=== PATIENT | female | born 1995 | race Caucasian/White ===

== ENCOUNTER → 2017-02-28 | Outpatient (CLI) | payer BC ==
--- NOTE | 2017-02-28 11:01 | Diagnostic Imaging Report ---
PROCEDURE: US OB SINGLE FETUS <14 WKS. TECHNIQUE: Multiple Real-time grayscale images were obtained over the gravid uterus in various projections. INDICATION: Threatened . FINDINGS: There is a twin intrauterine . Baby A has a heart rate of 160 BPM which is regular. Baby B has a heart rate of 179 BPM which is regular. There is a single gestational sac. Neither ovary was visualized. There are no adnexal masses. There is no free pelvic fluid. IMPRESSION: Viable twin intrauterine with cardiac activity as described. Dictated by: Dictated on workstation # [id number]
== END ==
LOC: RAD 09:58
PROVIDERS: ATTEND Obstetrics & Gynecology
DX: O20.0 Threatened abortion (principal); O30.001 Twin pregnancy, unspecified number of placenta and unspecified number of amniotic sacs, first trimester; Z3A.01 Less than 8 weeks gestation of pregnancy
CPT/HCPCS: 76801

== ENCOUNTER 2017-07-01 23:42 | Outpatient (CLI) | payer BC, MEDICAID ==
[~2017-07-01] VITALS: Ht 162.6 cm; Wt 128.8 kg
[2017-07-02 00:05] VITALS: BP 128/79
[2017-07-02] MEDS ORDERED: PREN-142 PO (00:18)
[2017-07-02 00:19] LABS: BILIRUBIN,URINE NEGATIVE (NEGATIVE); CLARITY,URINE CLEAR; COLOR,URINE YELLOW; GLUCOSE, URINE (UA) NEGATIVE (NEGATIVE); KETONES,URINE 1+ (NEGATIVE); LEUKOCYTE ESTERASE ,URINE NEGATIVE (NEGATIVE); NITRITE,URINE NEGATIVE (NEGATIVE); PH,URINE 6.5 (5-9); PROTEIN,URINE NEGATIVE (NEGATIVE); UROBILINOGEN,URINE NORMAL (NORMAL)
[2017-07-02 00:25] LABS: BACTERIA,URINE TRACE /HPF
--- NOTE | 2017-07-04 11:14 | Physician Query-Final Dx ---
QUIRINO MURDOCK 07/04/17 1114: Clinic Account Progress/Dx Physician Query: Please give diagnosis Date of Service Jul 01, 2017 at 23:42 CHARISSA GOULD DO 07/04/17 1916: Clinic Account Progress/Dx DIAGNOSIS: Diagnosis twin , decreased movement QUIRION MURDOCK Jul 04, 2017 11:14 CHARISSA GOULD DO Jul 04, 2017 19:16
== END 2017-07-02 01:03 ==
LOC: WSo 23:42 → LDRP 23:43 → WSo 07-02 01:03
PROVIDERS: ATTEND Obstetrics & Gynecology
DX: O36.8120 Decreased fetal movements, second trimester, not applicable or unspecified (principal); O30.009 Twin pregnancy, unspecified number of placenta and unspecified number of amniotic sacs, unspecified trimester; Z3A.27 27 weeks gestation of pregnancy
CPT/HCPCS: 81000; 99212

== ENCOUNTER 2017-09-06 20:43 | Outpatient (CLI) | payer BC, MEDICAID ==
[2017-09-06] VITALS (7 sets, daily range): BP systolic 102–133; BP diastolic 58–93
[~2017-09-06] VITALS: Ht 162.6 cm; Wt 118.0 kg
[~2017-09-06 20:43] MED LIST: PREN-142 PO
[2017-09-06] MEDS ORDERED: FERR-84 PO (21:21)
[2017-09-06 21:38] LABS: BACTERIA,URINE FEW /HPF; BILIRUBIN,URINE NEGATIVE (NEGATIVE); CLARITY,URINE SLIGHTLY CLOUDY; COLOR,URINE YELLOW; GLUCOSE, URINE (UA) NEGATIVE (NEGATIVE); KETONES,URINE NEGATIVE (NEGATIVE); LEUKOCYTE ESTERASE ,URINE NEGATIVE (NEGATIVE); NITRITE,URINE NEGATIVE (NEGATIVE); PH,URINE 6.5 (5-9); PROTEIN,URINE 1+ (NEGATIVE); UROBILINOGEN,URINE NORMAL (NORMAL)
[2017-09-06 22:09] LABS: BASOPHILS % (AUTO) 0 % (0-10); EOSINOPHILS # (AUTO) 0.1 10^3/uL (0.0-0.3); EOSINOPHILS % (AUTO) 1 % (0-10); HEMATOCRIT 31 % (35-52); HEMOGLOBIN 9.9 G/DL (11.5-16.0); LYMPHOCYTES % (AUTO) 20 % (12-44); MEAN CORPUSCULAR HEMOGLOBIN 28 PG (25-34); MEAN CORPUSCULAR HGB CONC 32 G/DL (32-36); MEAN CORPUSCULAR VOLUME 85 FL (80-99); MEAN PLATELET VOLUME 11.3 FL (7.4-10.4); MONOCYTES # (AUTO) 0.9 X 10^3 (0.0-1.0); MONOCYTES % (AUTO) 9 % (0-12); NEUTROPHILS # (AUTO) 7.2 X 10^3 (1.8-7.8); NEUTROPHILS % (AUTO) 71 % (42-75); PLATELET COUNT 128 10^3/uL (130-400); RED CELL DISTRIBUTION WIDTH 15.5 % (10.0-14.5); WHITE BLOOD COUNT 10.1 10^3/uL (4.3-11.0)
[2017-09-06 22:27] LABS: ALANINE AMINOTRANSFERASE 10 U/L (0-55); ALBUMIN 3.1 GM/DL (3.2-4.5); ALKALINE PHOSPHATASE 126 U/L (40-136); BILIRUBIN,TOTAL 0.2 MG/DL (0.1-1.0); BUN/CREATININE RATIO 12; CALCIUM 9.1 MG/DL (8.5-10.1); CARBON DIOXIDE 21 MMOL/L (21-32); CHLORIDE 108 MMOL/L (98-107); CREATININE SERUM 0.52 MG/DL (0.60-1.30); GFR ESTIMATED > 60; GLUCOSE 90 MG/DL (70-105); POTASSIUM 3.7 MMOL/L (3.6-5.0); SODIUM 138 MMOL/L (135-145); TOTAL PROTEIN 5.8 GM/DL (6.4-8.2)
--- NOTE | 2017-09-08 08:13 | Physician Query-Final Dx ---
QUIRINO MURDOCK 09/08/17 0813: Clinic Account Progress/Dx Physician Query: Please give diagnosis Date of Service Sep 06, 2017 at 20:43 JOSE MANUEL HARVEY DO 09/08/17 0921: Clinic Account Progress/Dx DIAGNOSIS: Diagnosis 36 week twin gestation Elevated BP at home Headache QUIRINO MURDOCK Sep 08, 2017 08:13 JOSE MANUEL HARVEY DO Sep 08, 2017 09:21
== END 2017-09-06 22:45 | disposition home or self-care (01) ==
LOC: WSo 20:43 → LDRP 20:45 → WSo 22:45
PROVIDERS: ATTEND Obstetrics & Gynecology
DX: O99.89 Other specified diseases and conditions complicating pregnancy, childbirth and the puerperium (principal); R51 Headache; R03.0 Elevated blood-pressure reading, without diagnosis of hypertension; O30.003 Twin pregnancy, unspecified number of placenta and unspecified number of amniotic sacs, third trimester; Z3A.36 36 weeks gestation of pregnancy
CPT/HCPCS: 36415; 80053; 81000; 82570; 84156; 84550; 85025; 99213

== ENCOUNTER 2017-09-09 10:47 | Inpatient (IN) | payer BC, MEDICAID ==
[~2017-09-09] VITALS: Ht 162.6 cm; Wt 136.5 kg
[~2017-09-09 10:47] MED LIST changes: +FERR-84 PO
--- OUTSIDE RECORDS SUMMARY | 2017-09-09 10:52 | XMS REPORT ---
Author Gio Mcadams [facility] Address [address] [place], [place] [id number] Care Team Providers Care Circulation Director Name Role Phone Gio Dacosta PCP Unavailable Allergies and Adverse Reactions Name Reaction Notes NO KNOWN DRUG ALLERGIES Plan of Treatment Planned Activity Comments Planned Date Planned Time Plan/Goal HPV VACCINE 4 VALENT IM 06/08/2015 12:00 AM CHYLMD TRACH DNA AMP PROBE 09/01/2015 12:00 AM SYPHILIS TEST NON-TREP QUAL 09/01/2015 12:00 AM HIV-1ANTIBODY 09/01/2015 12:00 AM HEPATITIS C AB TEST 09/01/2015 12:00 AM IMMUNOASSAY QUANT NOS NONAB 09/01/2015 12:00 AM Medications Active Name Start Date Estimated Completion Date SIG Comments Brintellix 10 mg oral tablet 09/18/2013 take 1 tablet (10 mg) by oral route once daily at the same time each day Brintellix 10 mg oral tablet 03/18/2014 TAKE ONE TABLET BY MOUTH ONCE DAILY AT THE SAME TIME EACH DAY Brintellix 10 mg oral tablet 05/13/2014 TAKE ONE TABLET BY MOUTH ONCE DAILY AT THE SAME TIME EACH DAY Name Start Date Expiration Date SIG Comments quetiapine 25 mg oral tablet 04/25/2013 take 1 tablet by oral route once a day for 4 days then alternate with 50 mg for 1 week15 ciprofloxacin HCl 500 mg oral tablet 07/22/2015 07/29/2015 take 1 tablet (500 mg ) by oral route 2 times per day for 7 days Discontinued Name Start Date Discontinued Date SIG Comments venlafaxine 50 mg oral tablet 04/25/2013 take 1 tablet (50 mg) by oral route Dr. Jones venlafaxine 50 mg oral tablet 04/25/2013 take 1 tablet (50 mg) by oral route changed by Dr. Reagan Christian 50 mg oral capsule 04/25/2013 take 1 capsule (50 mg) by oral route once daily in the morning Dr. Donald Vyvanse 50 mg oral capsule 04/25/2013 take 1 capsule (50 mg) by oral route once daily in the morning stopped by Dr. Reagan Frazier 1 % topical gel 04/06/2013 07/27/2013 apply to the affected area(s) by topical route once daily ; rub in gently and completely clindamycin HCl 300 mg oral capsule 03/16/2013 04/25/2013 take 1 capsule ( 300 mg) by oral route 2 times per day venlafaxine 75 mg oral tablet 06/15/2013 07/27/2013 take 1 tablet (75 mg) by oral route 2 times per for 30 days Tri-Sprintec (28) 0.18/0.215/0.25 mg-35 mcg (28) oral tablet 08/01/20132014 take 1 tablet by oral route once daily for 28 days "I stopped taking" quetiapine 100 mg oral tablet 09/18/2013 06/14/2014 take 1 tablet (50 mg) by oral route once daily at bedtime Dr Pulido stopped this Latuda 20 mg oral tablet 10/04/2014 take 1 tablet (20 mg) by oral route once daily with food (at least 350 calories) "I just stopped taking it" prednisone 20 mg oral tablet 06/14/2014 08/02/2014 take 1 tablet (20 mg) by oral route once daily Augmentin 500-125 mg oral tablet 06/14/2014 08/02/2014 take 1 tablet by oral route every 12 hours Brintellix 10 mg oral tablet 06/22/2014 10/04/2014 TAKE ONE TABLET BY MOUTH ONCE DAILY AT THE SAME TIME EACH DAY Brintellix 10 mg oral tablet 06/22/2014 10/04/2014 TAKE ONE TABLET BY MOUTH ONCE DAILY AT THE SAME TIME EACH DAY "I just stopped taking it" Augmentin 500-125 mg oral tablet 10/04/2014 06/04/2015 take 1 tablet by oral route every 12 hours benzonatate 200 mg oral capsule 10/04/2014 06/04/2015 take 1 capsule (200 mg) by oral route 3 times per day as needed Claritin-D 24 Hour 10-240 mg oral tablet extended release 24 hr 10/04/2014 take 1 tablet by oral route once daily as needed. Monitor Blood Pressure Vyvanse 20 mg oral capsule 06/04/2015 08/22/2015 take 1 capsule by oral route daily Nasonex 50 mcg/actuation nasal spray,non-aerosol 08/22/2015 09/01/2015 spray 2 sprays in each nostril by intranasal route once daily for 30 days Problem List Description Status Onset ADHD Active Depression Active Vital Signs Date Time BP-Sys(mm[Hg] BP-Perla(mm[Hg]) HR(bpm) RR(rpm) Temp WT HT HC BMI BSA BMI Percentile O2 Sat(%) 09/01/2015 1:51:00 PM 135 mmHg 63 mmHg 75 bpm 99.2 F 274 lbs 65.5 in 44.90 kg/m2 2.40 m2 99.2 % 08/22/2015 3:59:00 PM 130 mmHg 84 mmHg 91 bpm 18 rpm 97.4 F 273 lbs 64 in 46.8599 kg/m 2.3647 m 99.3 % 100 % 07/22/2015 10:43:00 AM 120 mmHg 72 mmHg 80 bpm 18 rpm 97.8 F 268 lbs 68 in 40.75 kg/m2 2.42 m2 98.8 % 100 % 07/02/2015 10:07:00 AM 70 bpm 20 rpm 96.8 F 265 lbs 100 % 06/04/2015 10:24:00 AM 130 mmHg 72 mmHg 69 bpm 16 rpm 97.4 F 274 lbs 68 in 41.6611 kg/m 2.4419 m 99 % 100 % 10/04/2014 3:51:00 PM 126 mmHg 66 mmHg 90 bpm 18 rpm 98.2 F 256 lbs 68 in 38.92 kg/m2 2.36 m2 98.8 % 99 % 08/02/2014 3:27:00 PM 124 mmHg 70 mmHg 80 bpm 18 rpm 98.4 F 252 lbs 68 in 38.3161 kg/m 2.3418 m 98.7 % 99 % 07/19/2014 4:20:00 PM 110 mmHg 68 mmHg 60 bpm 18 rpm 97 F 254 lbs 64 in 43.60 kg/m2 2.28 m2 99.3 % 100 % 06/14/2014 3:55:00 PM 124 mmHg 66 mmHg 59 bpm 16 rpm 98.2 F 252 lbs 68 in 38.3161 kg/m 2.3418 m 98.8 % 100 % 09/18/2013 8:49:00 AM 122 mmHg 68 mmHg 72 bpm 16 rpm 98.4 F 232 lbs 68 in 35.28 kg/m2 2.25 m2 98.4 % 100 % 08/17/2013 2:03:00 PM 128 mmHg 78 mmHg 75 bpm 20 rpm 98.6 F 231 lbs 68 in 35.1231 kg/m 2.2421 m 98.4 % 100 % 08/01/2013 9:16:00 AM 122 mmHg 70 mmHg 98 bpm 20 rpm 224 lbs 68 in 34.06 kg/m2 2.21 m2 98.1 % 100 % 07/27/2013 9:29:00 AM 124 mmHg 62 mmHg 64 bpm 20 rpm 97.3 F 228 lbs 65 in 37.9408 kg/m 2.1778 m 98.9 % 99 % 04/25/2013 8:48:00 AM 122 mmHg 60 mmHg 81 bpm 20 rpm 97.8 F 222 lbs 65 in 36.94 kg/m2 2.15 m2 98.8 % 100 % 04/06/2013 1:59:00 PM 120 mmHg 70 mmHg 68 bpm 18 rpm 97.9 F 216 lbs 65 in 35.9439 kg/m 2.1197 m 98.7 % 98 % 03/16/2013 3:59:00 PM 122 mmHg 60 mmHg 68 bpm 20 rpm 98.2 F 223 lbs 65 in 37.11 kg/m2 2.15 m2 98.9 % 100 % Social History Name Description Comments Tobacco Current every day smoker History of Procedures Date Ordered Description Order Status 06/05/2015 12:00 AM HUMAN PAPILLOMA VIRUS VACCINE QUADRIV 3 DOSE IM Reviewed 07/02/2015 12:00 AM INFLUENZA A/B AG EIA Returned 09/01/2015 12:00 AM SPECIMEN HANDLING OFFICE-LAB Reviewed 08/01/2013 12:00 AM CYTOPATH C/V THIN LAYER Reviewed 08/01/2013 12:00 AM IMMUNIZATION ADMIN Reviewed 08/01/2013 12:00 AM HPV VACCINE 4 VALENT IM Reviewed Results Summary Data and Description Results 07/02/2015 10:52 AM INFLUENZA A & B NO INFLUENZA A OR B DETECTED History Of Immunizations Name Date Admin Mfg Name Mfg Code Trade Name Lot# Route Inj Vis Given Vis Pub CVX HPV 08/01/2013 [employer] MSD GARDASIL [id number] Intramuscular Left Deltoid 08/01/2013 10/06/2012 62 HPV 1997 Not Entered NE Not Entered Not Entered Not Entered 201505/23/2015 999 HPV 06/04/2015 [employer] MSD Gardasil 9 [id number] Intramuscular Left Deltoid 06/04/2015 10/06/2012 62 History of Past Illness Name Date of Onset Comments ADHD Depression psychotic episodes Folliculitis Mar 16 2013 4:02PM Folliculitis Apr 06 2013 2:03PM Depression Apr 25 2013 8:50AM Attention Deficit Hyperactivity Disorder Jul 27 2013 9:32AM Depressive Disorder Jul 27 2013 9:32AM Gardsil (HPV) Aug 01 2013 10:31AM Routine gynecological examination Aug 01 2013 9:19AM Contraceptive Counseling Aug 01 2013 9:19AM Depressive Disorder Aug 17 2013 2:05PM Depression Sep 18 2013 8:52AM Hernia, Umibilical Sep 18 2013 8:52AM Bronchitis, Acute Jun 14 2014 3:58PM Sports Physical Jul 19 2014 4:23PM ADHD Aug 02 2014 3:30PM Depression Aug 02 2014 3:30PM Bronchitis, Acute Oct 04 2014 3:55PM Pharyngitis, Acute Oct 04 2014 3:55PM Gardsil (HPV) Jun 05 2015 10:52AM Attention Deficit Disorder Jun 04 2015 10:26AM Gardasil Jun 04 2015 10:26AM Fever Jul 02 2015 10:14AM Body aches Jul 02 2015 10:14AM Bartholin cyst Jul 22 2015 10:45AM Other seasonal allergic rhinitis Aug 22 2015 4:02PM Adolescent risk taking behavior Sep 01 2015 1:53PM Payers Insurance Name Company Name Plan Name Plan Number Policy Number Policy Group Number Start Date Cigna Cigna [id number] N/A [facility] [place] State Plan [employer] - [facility] [place] State Plan [id number] N/A BCBS [facility] [id number] Tuesday, 2013 History of Encounters Visit Date Visit Type Provider 09/01/2015 Office visit 09/01/2015 Office visit Gio Dacosta MD 08/22/[address] Yen Galindo DO 07/22/2015 Office visit Greg Gonzales DO 07/02/2015 Office visit Nakita Gomez WOOL PULLER 06/04/2015 Office visit Greg Gonzales DO 09/18/2013 Office visit Greg Gonzales DO 08/01/2013 Office visit Greg Gonzales DO 07/27/2013 Office visit Greg Gonzales DO 04/25/2013 Office visit Greg Gonzales DO
--- OUTSIDE RECORDS SUMMARY | 2017-09-09 10:53 | XMS REPORT ---
Author Author Greg Gonzales [facility] Address [address] [place], [place] [id number] Care Team Providers Care Siebel Consultant Name Role Phone Greg Gonzales PCP Unavailable Allergies and Adverse Reactions Name Reaction Notes NO KNOWN DRUG ALLERGIES Plan of Treatment Not available. Medications Active Name Start Date Estimated Completion [...] DAILY AT THE SAME TIME EACH DAY Vyvanse 20 mg oral capsule 06/04/2015 take 1 capsule by oral route daily Name Start Date Expiration Date SIG Comments quetiapine 25 mg oral tablet 04/25/2013 take 1 tablet by oral route once a day for 4 days then alternate with 50 mg for 1 week15 Discontinued Name Start Date Discontinued Date SIG Comments venlafaxine 50 mg oral tablet 04/25/2013 take 1 tablet (50 mg) by oral route Dr. Jones venlafaxine 50 mg oral tablet 04/25/2013 take 1 tablet (50 mg) by oral route changed by Dr. Reagan Christian 50 mg oral capsule 04/25/2013 take 1 capsule (50 mg) by oral route once daily in the morning Dr. Donald Christian 50 mg oral capsule 04/25/2013 take [...] once daily as needed. Monitor Blood Pressure Problem List Description Status Onset ADHD Active Depression Active Vital Signs Date Time BP-Sys(mm[Hg] BP-Perla(mm[Hg]) HR(bpm) RR(rpm) Temp WT HT HC BMI BSA BMI Percentile O2 Sat(%) 06/04/2015 10:24:00 AM 130 mmHg 72 mmHg 69 bpm 16 rpm 97.4 F 274 lbs 68 in 41.66 kg/m2 2.44 m2 99 % 100 % 10/04/2014 3:51:00 PM 126 mmHg 66 mmHg 90 bpm 18 rpm 98.2 F 256 lbs 68 in 38.9243 kg/m 2.3603 m 98.8 % 99 % 08/02/2014 3:27:00 PM 124 mmHg 70 mmHg 80 bpm 18 rpm 98.4 F 252 lbs 68 in 38.32 kg/m2 2.34 m2 98.7 % 99 % 07/19/2014 4:20:00 PM 110 mmHg 68 mmHg 60 bpm 18 rpm 97 F 254 lbs 64 in 43.5986 kg/m 2.2809 m 99.3 % 100 % 06/14/2014 3:55:00 PM 124 mmHg 66 mmHg 59 bpm 16 rpm 98.2 F 252 lbs 68 in 38.32 kg/m2 2.34 m2 98.8 % 100 % 09/18/2013 8:49:00 AM 122 mmHg 68 mmHg 72 bpm 16 rpm 98.4 F 232 lbs 68 in 35.2751 kg/m 2.247 m 98.4 % 100 % 08/17/2013 2:03:00 PM 128 mmHg 78 mmHg 75 bpm 20 rpm 98.6 F 231 lbs 68 in 35.12 kg/m2 2.24 m2 98.4 % 100 % 08/01/2013 9:16:00 AM 122 mmHg 70 mmHg 98 bpm 20 rpm 224 lbs 68 in 34.0587 kg/m 2.2079 m 98.1 % 100 % 07/27/2013 9:29:00 AM 124 mmHg 62 mmHg 64 bpm 20 rpm 97.3 F 228 lbs 65 in 37.94 kg/m2 2.18 m2 98.9 % 99 % 04/25/2013 8:48:00 AM 122 mmHg 60 mmHg 81 bpm 20 rpm 97.8 F 222 lbs 65 in 36.9424 kg/m 2.149 m 98.8 % 100 % 04/06/2013 1:59:00 PM 120 mmHg 70 mmHg 68 bpm 18 rpm 97.9 F 216 lbs 65 in 35.94 kg/m2 2.12 m2 98.7 % 98 % 03/16/2013 3:59:00 PM 122 mmHg 60 mmHg 68 bpm 20 rpm 98.2 F 223 lbs 65 in 37.1088 kg/m 2.1538 m 98.9 % 100 % Social History Name Description Comments Student (High school ) Tobacco Never smoker History of Procedures Date Ordered Description Order Status 06/05/2015 12:00 AM HUMAN PAPILLOMA VIRUS VACCINE QUADRIV 3 DOSE IM Reviewed 08/01/2013 12:00 AM CYTOPATH C/V THIN LAYER Reviewed 08/01/2013 12:00 AM IMMUNIZATION ADMIN Reviewed 08/01/2013 12:00 AM HPV VACCINE 4 VALENT IM Reviewed Results Summary Not available. History Of Immunizations Name Date Admin Mfg Name Mfg Code Trade Name Lot# Route Inj Vis Given Vis Pub CVX HPV 08/01/2013 [employer] MSD GARDASIL [id number] Intramuscular Left Deltoid 08/01/2013 10/06/2012 62 History of Past Illness Name Date of Onset Comments ADHD Depression Folliculitis Mar 16 2013 4:02PM Folliculitis Apr [...] 3:55PM Gardsil (HPV) Jun 05 2015 10:52AM Payers Insurance Name Company Name Plan Name Plan Number Policy Number Policy Group Number Start Date [facility] [place] State [place] [facility] [place] Plan [id number] N/A BCBS [employer] [id number] Tuesday, 2013 History of Encounters Visit Date Visit Type Provider 06/04/2015 Office visit Greg Gonzales DO 09/18/2013 Office visit Greg Gonzales DO 08/01/2013 Office visit Greg Gonzales DO 07/27/2013 Office visit Greg Gonzales DO 04/25/2013 Office visit Greg Gonzales DO
--- OUTSIDE RECORDS SUMMARY | 2017-09-09 10:53 | XMS REPORT ---
Author Author Greg Gonazles [facility] Address [address] [place], [place] [address] Care Team Providers Care Hogshead Opener Name Role Phone Greg Gonzales PCP Unavailable Greg Gonzales PreferredProvider Unavailable Allergies and Adverse Reactions Name Reaction [...] 2 times per day for 7 days Vyvanse 20 mg oral capsule 09/24/2015 10/24/2015 take 1 capsule by oral route daily for 30 days Bactrim DS 800-160 mg oral tablet 10/29/2015 11/05/2015 take 1 tablet by oral route every 12 hours for 7 days Provera 10 mg oral tablet 12/25/2015 12/30/2015 take 1 tablet (10 mg) by oral route once daily for 5 days clindamycin HCl 300 mg oral capsule 01/22/2016 01/29/2016 take 1 capsule (300 mg ) by oral route 2 times per day for 7 days clindamycin HCl 150 mg oral capsule 02/16/2016 02/26/2016 take 1 capsule (150 mg) by oral route 2 times per day for 10 days Discontinued Name Start Date Discontinued Date [...] intranasal route once daily for 30 days Azo 95 mg oral tablet 12/23/2015 Bactrim DS 800-160 mg oral tablet 01/22/2016 mupirocin 2 % topical ointment 02/16/2016 09/14/2016 apply a small amount to the affected area by topical route 3 times per day Problem List Description Status Onset ADHD Active Depression Active Vital Signs Date Time BP-Sys(mm[Hg] BP-Perla(mm[Hg]) HR(bpm) RR(rpm) Temp WT HT HC BMI BSA BMI Percentile O2 Sat(%) 09/14/2016 11:15:00 AM 112 mmHg 72 mmHg 78 bpm 18 rpm 97.9 F 246.5 lbs 65.5 in 40.40 kg/m2 2.27 m2 98.5 % 100 % 02/16/2016 2:14:00 PM 130 mmHg 66 mmHg 80 bpm 20 rpm 97.9 F 289 lbs 65.5 in 47.3602 kg/m 2.4613 m 99.2 % 100 % 01/22/2016 5:38:00 PM 124 mmHg 66 mmHg 78 bpm 18 rpm 98 F 291.5 lbs 65.5 in 47.77 kg/m2 2.47 m2 99.2 % 98 % 12/23/2015 2:29:00 PM 130 mmHg 72 mmHg 70 bpm 16 rpm 97.9 F 287 lbs 65.5 in 47.0325 kg/m 2.4528 m 99.2 % 99 % 10/29/2015 5:39:00 PM 122 mmHg 64 mmHg 113 bpm 18 rpm 98.1 F 274.062 lbs 65.5 in 44.91 kg/m2 2.40 m2 99.1 % 100 % 09/01/2015 1:51:00 PM 135 mmHg 63 mmHg 75 bpm 99.2 F 274 lbs 65.5 in 44.9021 kg/m 2.3966 m 99.2 % 08/22/2015 3:59:00 PM 130 mmHg 84 mmHg 91 bpm 18 rpm 97.4 F 273 lbs 64 in 46.86 kg/m2 2.36 m2 99.3 % 100 % 07/22/2015 10:43:00 AM 120 mmHg 72 mmHg 80 bpm 18 rpm 97.8 F 268 lbs 68 in 40.7488 kg/m 2.415 m 98.8 % 100 % 07/02/2015 10:07:00 AM [...] Description Comments Tobacco Current every day smoker 10/29/2015 - History of Procedures Date Ordered Description Order Status 06/05/2015 12:00 AM HUMAN PAPILLOMA VIRUS VACCINE QUADRIV 3 DOSE IM Reviewed 06/08/2015 12:00 AM HPV VACCINE 4 VALENT IM Reviewed 07/02/2015 12:00 AM INFLUENZA A/B AG EIA Reviewed 09/01/2015 12:00 AM CHYLMD TRACH DNA AMP PROBE Returned 09/01/2015 12:00 AM SYPHILIS TEST NON-TREPONEMAL ANTIBODY QUAL Returned 09/01/2015 12:00 AM HIV-1ANTIBODY Returned 09/01/2015 12:00 AM HEPATITIS C AB TEST Returned 09/01/2015 12:00 AM SPECIMEN HANDLING OFFICE-LAB Reviewed 09/01/2015 12:00 AM IMMUNOASSAY QUANT NOS NONAB Returned 10/30/2015 12:00 AM URINE CULTURE/COLONY COUNT Reviewed 12/23/2015 3:51 PM URINE TEST Reviewed 12/23/2015 12:00 AM ASSAY THYROID STIM HORMONE Reviewed 12/23/2015 12:00 AM ASSAY OF GONADOTROPIN (FSH) Reviewed 12/23/2015 12:00 AM ASSAY OF PROLACTIN Reviewed 01/22/2016 12:00 AM CUL BACT XCPT URINE BLOOD/STOOL AEROBIC ISOL Reviewed 02/02/2016 12:00 AM DRAINAGE OF SKIN ABSCESS Reviewed 02/16/2016 12:00 AM MICROBIOLOGY PROCEDURE Reviewed 09/14/2016 12:00 AM Bicillin CR Injection 1.2 million units Reviewed 08/01/2013 12:00 AM CYTOPATH C/V THIN LAYER Reviewed 08/01/2013 12:00 AM IMMUNIZATION ADMIN Reviewed 08/01/2013 12:00 AM HPV VACCINE 4 VALENT IM Reviewed 09/18/2013 12:00 AM Psychiatry Consult Reviewed Results Summary Data and Description Results 07/02/2015 10:52 AM INFLUENZA A & B NO INFLUENZA A OR B DETECTED 09/01/2015 2:55 PM HIV AG/AB COMBO 0.08 HEPATITIS C 0.12 RPR Non Reactive 12/23/2015 3:08 PM TSH 1.170 uIU/mLFSH 6.10 mIU/mLProlactin 9.10 ng/mL 12/23/2015 3:51 PM Test, Urine negative 02/16/2016 3:23 PM SPECIMEN SOURCE: RT POSTERIOR SHOULDER History Of Immunizations Name Date Admin Mfg Name Mfg Code Trade Name Lot# Route Inj Vis Given Vis Pub CVX HPV 08/01/2013 [employer] MSD GARDASIL [id number] Intramuscular Left Deltoid 08/01/2013 10/06/2012 62 HPV 1997 Not Entered NE Not Entered Not Entered Not Entered 201605/23/2016 999 HPV 06/04/2015 [employer] MSD Gardasil 9 [id number] Intramuscular Left Deltoid 06/04/2015 10/06/2012 62 History [...] risk taking behavior Sep 01 2015 1:53PM Dysuria Oct 29 2015 5:41PM Acute cystitis with hematuria Oct 29 2015 5:41PM Secondary amenorrhea Dec 23 2015 2:32PM Tattoo reaction Jan 22 2016 5:40PM Cellulitis of back Jan 22 2016 5:40PM Abscess / Cellulitis Feb 02 2016 9:27AM Wound drainage Feb 16 2016 2:17PM Cellulitis Feb 16 2016 2:17PM Acute pharyngitis Sep 14 2016 11:18AM Payers Insurance Name Company Name Plan Name Plan Number Policy Number Policy Group Number Start Date Fransico Bateman [id number] May [employer] - [place] State [place] [employer] [place] [id number] N/A BCBS [facility] [id number] Tuesday, 2013 History of Encounters Visit Date Visit Type Provider 09/14/2016 Office visit Greg Gonzales DO 02/16/2016 Office visit Greg Gonzales DO 01/22/2016 Office visit 01/22/2016 Office visit Iain Bhat CORROSION CONTROL SPECIALIST 12/23/2015 Office visit Greg Gonzales DO 10/29/2015 Office visit Iain Bhat CORROSION CONTROL SPECIALIST 09/01/2015 Office visit 09/01/2015 Office visit Gio Dacosta MD 08/22/[address] Yen Galindo DO 07/22/2015 Office visit Greg Gonzales DO 07/02/2015 Office visit Nakita Gomez CORROSION CONTROL SPECIALIST 06/04/2015 Office visit Greg Gonzales DO 09/18/2013 Office visit Greg Gonzales DO 08/01/2013 Office visit Greg Gonzales DO 07/27/2013 Office visit Greg Gonzales DO 04/25/2013 Office visit Greg Gonzales DO
--- OUTSIDE RECORDS SUMMARY | 2017-09-09 10:54 | XMS REPORT ---
Author Greg Vidales [facility] Address [address] [place], [place] [address] Care Team Providers Care Managing Principal Name Role Phone Greg Gonzales PCP Unavailable Allergies and Adverse Reactions Name Reaction Notes NO KNOWN DRUG ALLERGIES Plan of Treatment Planned Activity Comments Planned Date Planned Time Plan/Goal HPV VACCINE 4 VALENT IM 06/08/2015 12:00 AM Medications Active Name Start Date [...] DAILY AT THE SAME TIME EACH DAY clindamycin HCl 150 mg oral capsule 02/16/2016 02/26/2016 take 1 capsule (150 mg) by oral route 2 times per day for 10 days mupirocin 2 % topical ointment 02/16/2016 apply a small amount to the affected area by topical route 3 times per day Name Start Date Expiration Date SIG Comments [...] once daily in the morning Dr. Donald Tuckere 50 mg oral capsule 04/25/2013 take 1 capsule (50 mg) by oral route once daily in the morning stopped by Dr. Kirk Metrogward 1 % topical gel 04/06/2013 07/27/2013 apply [...] Bactrim DS 800-160 mg oral tablet 01/22/2016 Problem List Description Status Onset ADHD Active Depression Active Vital Signs Date Time BP-Sys(mm[Hg] BP-Perla(mm[Hg]) HR(bpm) RR(rpm) Temp WT HT HC BMI BSA BMI Percentile O2 Sat(%) 02/16/2016 2:14:00 PM 130 mmHg 66 mmHg 80 bpm 20 rpm 97.9 F 289 lbs 65.5 in 47.36 kg/m2 2.46 m2 99.2 % 100 % 01/22/2016 5:38:00 PM 124 mmHg 66 mmHg 78 bpm 18 rpm 98 F 291.5 lbs 65.5 in 47.7699 kg/m 2.4719 m 99.2 % 98 % 12/23/2015 2:29:00 PM 130 mmHg 72 mmHg 70 bpm 16 rpm 97.9 F 287 lbs 65.5 in 47.03 kg/m2 2.45 m2 99.2 % 99 % 10/29/2015 5:39:00 PM 122 mmHg 64 mmHg 113 bpm 18 rpm 98.1 F 274.062 lbs 65.5 in 44.9123 kg/m 2.3969 m 99.1 % 100 % 09/01/2015 1:51:00 PM [...] A/B AG EIA Returned 09/01/2015 12:00 AM CHYLMD TRACH DNA AMP PROBE Returned 09/01/2015 12:00 AM SYPHILIS TEST NON-TREPONEMAL ANTIBODY QUAL Returned 09/01/2015 12:00 AM HIV-1ANTIBODY Returned 09/01/2015 12:00 AM HEPATITIS C AB TEST Returned 09/01/2015 12:00 AM SPECIMEN HANDLING OFFICE-LAB Reviewed 09/01/2015 12:00 AM IMMUNOASSAY QUANT NOS NONAB Returned 10/30/2015 12:00 AM URINE CULTURE/COLONY COUNT Returned 12/23/2015 3:51 PM URINE TEST Reviewed 12/23/2015 12:00 AM ASSAY THYROID STIM HORMONE Reviewed 12/23/2015 12:00 AM ASSAY OF GONADOTROPIN (FSH) Reviewed 12/23/2015 12:00 AM ASSAY OF PROLACTIN Reviewed 01/22/2016 12:00 AM CUL BACT XCPT URINE BLOOD/STOOL AEROBIC ISOL Returned 02/02/2016 12:00 AM DRAINAGE OF SKIN ABSCESS Reviewed 02/16/2016 12:00 AM MICROBIOLOGY PROCEDURE Reviewed 08/01/2013 12:00 AM CYTOPATH C/V THIN [...] ng/mL 12/23/2015 3:51 PM Test, Urine negative History Of Immunizations Name Date Admin Mfg Name Mfg Code Trade Name Lot# Route Inj Vis Given Vis Pub CVX HPV 08/01/2013 [employer] Co[employer] MSD GARDASIL [id number] Intramuscular Left Deltoid 08/01/2013 10/06/2012 62 HPV 1997 Not Entered NE Not Entered Not Entered Not Entered 201505/23/2015 999 HPV 06/04/2015 [employer] MSD Gardasil 9 [id number] Intramuscular Left Deltoid 06/04/2015 10/06/2012 62 History [...] 2016 2:17PM Cellulitis Feb 16 2016 2:17PM Payers Insurance Name Company Name Plan Name Plan Number Policy Number Policy Group Number Start Date Frnasico Bateman [id number] May [employer] - [facility] [employer] [place] [id number] N/A BCBS [facility] [id number] Tuesday, 2013 History of Encounters Visit Date Visit Type Provider 02/16/2016 Office visit Greg Gonzales DO 01/22/2016 Office visit 01/22/2016 Office visit Iain Bhat AIR DEFENSE SPECIALIST 12/23/2015 Office visit Greg Gonzales DO 10/29/2015 Office visit Iain Bhat APRN 09/01/2015 Office visit 09/01/2015 Office visit Gio Dacosta MD 08/22/[address] Yen Galindo DO 07/22/2015 Office visit Greg Gonzales DO 07/02/2015 Office visit Nakita Gomez APRN 06/04/2015 Office visit Greg Gonzales DO 09/18/2013 Office visit Greg Gonzales DO 08/01/2013 Office visit Greg Gonzales DO 07/27/2013 Office visit Greg Gonzales DO 04/25/2013 Office visit Greg Gonzales DO
--- OUTSIDE RECORDS SUMMARY | 2017-09-09 10:54 | XMS REPORT ---
Author Iain Rivera [facility] Address [address] [place], [place] [address] Care Team Providers Care Senior Systems Analyst Name Role Phone Iain Bhat PCP Allergies and Adverse Reactions Name Reaction Notes [...] HC BMI BSA BMI Percentile O2 Sat(%) 01/22/2016 5:38:00 PM 124 mmHg 66 mmHg [...] 12:00 AM DRAINAGE OF SKIN ABSCESS Reviewed 08/01/2013 12:00 AM CYTOPATH C/V THIN [...] 08/01/2013 [employer] MSD GARDASIL [id number] Intramuscular Left Deltoid 08/01/2013 10/06/2012 62 HPV 1997 Not Entered NE Not Entered Not Entered Not Entered 201505/23/2015 999 HPV 06/04/2015 [employer] MSD Gardasil 9 [id number] Intramuscular Left Deltoid 06/04/2015 10/06/2012 62 History [...] Abscess / Cellulitis Feb 02 2016 9:27AM Payers Insurance Name Company Name Plan Name Plan Number Policy Number Policy Group Number Start Date Cigtyrone [place] [id number] May Amerigroup - [place] State [place] Amerigroup - [place] [id number] N/A BCBS Bcbs [facility] [id number] Tuesday, 2013 History of Encounters Visit Date Visit Type Provider 01/22/2016 Office visit 01/22/2016 Office visit Iain Bhat PROPAGATOR LABORER 12/23/2015 Office visit Greg Gonzales DO 10/29/2015 Office visit Iain Bhat PROPAGATOR LABORER 09/01/2015 Office visit 09/01/2015 Office visit Gio Dacosta MD 08/22/[address] Yen Galindo DO 07/22/2015 Office visit Greg Gonzales DO 07/02/2015 Office visit Nakita Gomez PROPAGATOR LABORER 06/04/2015 Office visit Greg Gonzales DO 09/18/2013 Office visit Greg Gonzales DO 08/01/2013 Office visit Greg Gonzales DO 07/27/2013 Office visit Greg Gonzales DO 04/25/2013 Office visit Greg Gonzales DO
--- OUTSIDE RECORDS SUMMARY | 2017-09-09 10:54 | XMS REPORT ---
Author Author Nakita Gomez [facility] Address [address] [place], [place] [address] Care Team Providers Care Risk Specialist Name Role Phone Nakita Gomez PCP Unavailable Allergies and Adverse Reactions Name Reaction Notes NO KNOWN DRUG ALLERGIES Plan of Treatment Planned Activity Comments Planned Date Planned Time Plan/Goal HPV VACCINE 4 VALENT IM 06/08/2015 12:00 AM INFLUENZA A/B AG EIA 07/02/2015 12:00 AM Medications Active Name Start Date [...] mg) by oral route changed by Dr. Kirk Vyvcésare 50 mg oral capsule 04/25/2013 take 1 [...] HC BMI BSA BMI Percentile O2 Sat(%) 07/02/2015 10:07:00 AM 70 bpm 20 rpm 96.8 F 265 lbs 100 % 06/04/2015 10:24:00 AM 130 mmHg 72 mmHg 69 bpm 16 rpm 97.4 F 274 lbs 68 in 41.66 kg/m2 2.4419 m 99 % 100 % 10/04/2014 3:51:00 PM 126 mmHg 66 mmHg 90 bpm 18 rpm 98.2 F 256 lbs 68 in 38.9243 kg/m 2.36 m2 98.8 % 99 % 08/02/2014 3:27:00 PM 124 mmHg 70 mmHg 80 bpm 18 rpm 98.4 F 252 lbs 68 in 38.32 kg/m2 2.3418 m 98.7 % 99 % 07/19/2014 4:20:00 PM 110 mmHg 68 mmHg 60 bpm 18 rpm 97 F 254 lbs 64 in 43.5986 kg/m 2.28 m2 99.3 % 100 % 06/14/2014 3:55:00 PM 124 mmHg 66 mmHg 59 bpm 16 rpm 98.2 F 252 lbs 68 in 38.32 kg/m2 2.3418 m 98.8 % 100 % 09/18/2013 8:49:00 AM 122 mmHg 68 mmHg 72 bpm 16 rpm 98.4 F 232 lbs 68 in 35.2751 kg/m 2.25 m2 98.4 % 100 % 08/17/2013 2:03:00 PM 128 mmHg 78 mmHg 75 bpm 20 rpm 98.6 F 231 lbs 68 in 35.12 kg/m2 2.2421 m 98.4 % 100 % 08/01/2013 [...] 08/01/2013 [employer] MSD GARDASIL [id number] Intramuscular Left Deltoid 08/01/2013 10/06/2012 62 HPV 1997 Not Entered NE Not Entered Not Entered Not Entered 201505/23/2015 999 HPV 06/04/2015 [employer] MSD Gardasil 9 [id number] Intramuscular Left Deltoid 06/04/2015 10/06/2012 62 History [...] 10:14AM Body aches Jul 02 2015 10:14AM Payers Insurance Name Company Name Plan Name Plan Number Policy Number Policy Group Number Start Date Amerigroup - C - [place] State Plan Amerigroup - [facility] [place] State Plan [id number] N/A [facility] [id number] Tuesday, 2013 History of Encounters Visit Date Visit Type Provider 07/02/2015 Office visit Nakita Gomez APRN 06/04/2015 Office visit Greg Gonzales DO 09/18/2013 Office visit Greg Gonzales DO 08/01/2013 Office visit Greg Gonzales DO 07/27/2013 Office visit Greg Gonzales DO 04/25/2013 Office visit Greg Gonzales DO
--- OUTSIDE RECORDS SUMMARY | 2017-09-09 10:54 | XMS REPORT | CCD ---
Author Author PJ BRENNER Organization Unknown Address [address] [place] [address] Care Team Providers Care Liaison Planner Name Role Phone ALLENCULLINS PHYS, [facility] ER Attphys ALLENCULLINS PHYS, [facility] Prisurg Allergies Unknown or Not Available. Active Medications Unknown or Not Available. Problems Unknown or Not Available. Procedures Unknown or Not Available. Results Unknown or Not Available. Function Status Unknown or Not Available. History of Immunizations Immunization Code Date OPV 1997 OPV 1997 OPV 02 01/14/1999 OPV 02 07/18/2001 MMR 03 10/14/1998 MMR 03 07/18/2001 Hep B, adolescent or pediatric 08 1997 Hep B, adolescent or pediatric 08 1997 Hep B, adolescent or pediatric 08 01/07/1998 Hib, unspecified formulation 17 1997 Hib, unspecified formulation 17 1997 Hib, unspecified formulation 17 01/07/1998 DTaP 20 1997 DTaP 20 1997 DTaP 20 01/07/1998 DTaP 20 01/14/1999 DTaP 20 07/18/2001 varicella 21 07/22/1998 varicella 21 01/01/2009 Hib (PRP-T) 48 01/14/1999 HPV, quadrivalent 62 08/01/2013 Hep A, ped/adol, 2 dose 83 07/11/1999 Hep A, ped/adol, 2 dose 83 01/01/2009 Tdap 115 01/01/2009 Novel [id number] 127 05/09/2009 Plan of Treatment Unknown or Not Available. Social History Smoking Status Code Start Date End Date Never smoker [id number] Vital Signs Unknown or Not Available. Function Status Unknown or Not Available. Goals Unknown or Not Available. ASSESSMENTS Unknown or Not Available. Health Concerns Section Unknown or Not Available.
--- OUTSIDE RECORDS SUMMARY | 2017-09-09 10:55 | XMS REPORT ---
Author Author Greg Gonzales [facility] Address [address] [place], [place] [address] Care Team Providers Care Commercial Loan Closer Name Role Phone Greg Gonzales PCP Unavailable Allergies and Adverse Reactions Name Reaction Notes NO KNOWN DRUG ALLERGIES Plan of Treatment Not available. Medications Active Name Start Date Estimated Completion Date SIG Comments Brintellix oral tablet 10 mg 09/18/2013 take 1 tablet (10 mg) by oral route once daily at the same time each day Brintellix oral tablet 10 mg 03/18/2014 TAKE ONE TABLET BY MOUTH ONCE DAILY AT THE SAME TIME EACH DAY Brintellix oral tablet 10 mg 05/13/2014 TAKE ONE TABLET BY MOUTH ONCE DAILY AT THE SAME TIME EACH DAY Augmentin oral tablet 500-125 mg 10/04/2014 take 1 tablet by oral route every 12 hours benzonatate oral capsule 200 mg 10/04/2014 take 1 capsule (200 mg) by oral route 3 times per day as needed Claritin-D 24 Hour oral tablet extended release 24 hr 10-240 mg 10/04/2014 take 1 tablet by oral route once daily as needed. Monitor Blood Pressure Name Start Date Expiration Date SIG Comments quetiapine oral tablet 25 mg 04/25/2013 take 1 tablet by oral route once a day for 4 days then alternate with 50 mg for 1 week15 Discontinued Name Start Date Discontinued Date SIG Comments venlafaxine Oral tablet 50 mg 04/25/2013 take 1 tablet (50 mg) by oral route Dr. Jones venlafaxine Oral tablet 50 mg 04/25/2013 take 1 tablet (50 mg) by oral route changed by Dr. Reagan Christian Oral capsule 50 mg 04/25/2013 take 1 capsule (50 mg) by oral route once daily in the morning Dr. Donald Christian Oral capsule 50 mg 04/25/2013 take 1 capsule (50 mg) by oral route once daily in the morning stopped by Dr. Reagan Frazier Topical Gel 1 % 04/06/2013 07/27/2013 apply to the affected area(s) by topical route once daily ; rub in gently and completely clindamycin HCl oral capsule 300 mg 03/16/2013 04/25/2013 take 1 capsule ( 300 mg) by oral route 2 times per day venlafaxine oral tablet 75 mg 06/15/2013 07/27/2013 take 1 tablet (75 mg) by oral route 2 times per for 30 days Tri-Sprintec (28) Oral Tablet .18/.215/.25-35 mg-mcg 08/01/2013 06/14/2014 take 1 tablet by oral route once daily for 28 days "I stopped taking" quetiapine oral tablet 100 mg 09/18/2013 06/14/2014 take 1 tablet (50 mg) by oral route once daily at bedtime Dr Pulido stopped this Latuda oral tablet 20 mg 10/04/2014 take 1 tablet (20 mg) by oral route once daily with food (at least 350 calories) "I just stopped taking it" prednisone oral tablet 20 mg 06/14/2014 08/02/2014 take 1 tablet (20 mg) by oral route once daily Augmentin oral tablet 500-125 mg 06/14/2014 08/02/2014 take 1 tablet by oral route every 12 hours Brintellix oral tablet 10 mg 06/22/2014 10/04/2014 TAKE ONE TABLET BY MOUTH ONCE DAILY AT THE SAME TIME EACH DAY Brintellix oral tablet 10 mg 06/22/2014 10/04/2014 TAKE ONE TABLET BY MOUTH ONCE DAILY AT THE SAME TIME EACH DAY "I just stopped taking it" Problem List Description Status Onset ADHD Active Depression Active Vital Signs Date Time BP-Sys(mm[Hg] BP-Perla(mm[Hg]) HR(bpm) RR(rpm) Temp WT HT HC BMI BSA BMI Percentile O2 Sat(%) 10/04/2014 3:51:00 PM 126 mmHg 66 mmHg [...] of Procedures Date Ordered Description Order Status 08/01/2013 12:00 AM CYTOPATH C/V THIN LAYER Reviewed 08/01/2013 12:00 AM IMMUNIZATION ADMIN Reviewed 08/01/2013 12:00 AM HPV VACCINE 4 VALENT IM Reviewed Results Summary Not available. History Of Immunizations Name Date Admin Mfg Name Mfg Code Trade Name Lot# Route Inj Vis Given Vis Pub CVX HPV 08/01/2013 [employer] MSD GARDASIL [id number] Intramuscular Left Deltoid 08/01/2013 10/06/2012 62 History [...] 3:55PM Pharyngitis, Acute Oct 04 2014 3:55PM Payers Insurance Name Company Name Plan Name Plan Number Policy Number Policy Group Number Start Date Bcbs Bcbs [facility] [id number] Tuesday, 2013 Amer[employer] - [facility] - [place] State Plan [facility] [place] State Plan [id number] N/A History of Encounters Visit Date Visit Type Provider 09/18/2013 Office visit Greg Gonzales DO 08/01/2013 Office visit Greg Gonzales DO 07/27/2013 Office visit Greg Gonzales DO 04/25/2013 Office visit Greg Gonzales DO
--- OUTSIDE RECORDS SUMMARY | 2017-09-09 10:55 | XMS REPORT ---
Author Iain Rivera [facility] Address [address] [place], [place] [address] Care Team Providers Care Ends Down Checker Name Role Phone Iain Bhat PCP Allergies [...] BACT XCPT URINE BLOOD/STOOL AEROBIC ISOL Returned 08/01/2013 12:00 AM CYTOPATH C/V THIN LAYER [...] 08/01/2013 [employer] MSD GARDASIL [id number] Intramuscular Left Deltoid 08/01/2013 10/06/2012 62 HPV 1997 Not Entered NE Not Entered Not Entered Not Entered 201505/23/2015 999 HPV 06/04/2015 [employer] MSD Gardasil 9 [id number] Intramuscular Left Deltoid 06/04/2015 10/06/2012 62 History [...] Cellulitis of back Jan 22 2016 5:40PM Payers Insurance Name Company Name Plan Name Plan Number Policy Number Policy Group Number Start Date Cigna Cigna [id number] May Amerigroup - [place] State [place] Amer[employer] [place] Plan [id number] N/A BCBS Bcbs [facility] [id number] Tuesday, 2013 History of Encounters Visit Date Visit Type Provider 01/22/2016 Office visit Iain Bhat APRN 12/23/2015 Office visit Greg Gonzales DO 10/29/2015 [...]
--- OUTSIDE RECORDS SUMMARY | 2017-09-09 10:55 | XMS REPORT ---
Author Yen Gilman [facility] Address [address] [place], [place] [address] Care Team Providers Care Interlocking Tower Operator Name Role Phone Yen Galindo PCP Allergies and Adverse Reactions Name Reaction [...] DAILY AT THE SAME TIME EACH DAY Nasonex 50 mcg/actuation nasal spray,non-aerosol 08/22/2015 09/21/2015 spray 2 sprays in each nostril by intranasal route once daily for 30 days Name Start Date Expiration Date SIG Comments [...] by oral route changed by Dr. Reagan Tuckere 50 mg oral capsule 04/25/2013 take 1 capsule (50 mg) by oral route once daily in the morning Dr. Donald Christian 50 mg oral capsule 04/25/2013 take 1 capsule (50 mg) by oral route once daily in the morning stopped by Dr. Kirk Metrogel 1 % topical gel 04/06/2013 07/27/2013 apply [...] take 1 capsule by oral route daily Problem List Description Status Onset ADHD Active Depression Active Vital Signs Date Time BP-Sys(mm[Hg] BP-Perla(mm[Hg]) HR(bpm) RR(rpm) Temp WT HT HC BMI BSA BMI Percentile O2 Sat(%) 08/22/2015 3:59:00 PM 130 mmHg 84 mmHg [...] rpm 224 lbs 68 in 34.0587 kg/m 2.21 m2 98.1 % 100 % 07/27/2013 9:29:00 AM 124 mmHg 62 mmHg 64 bpm 20 rpm 97.3 F 228 lbs 65 in 37.94 kg/m2 2.1778 m 98.9 % 99 % 04/25/2013 8:48:00 AM 122 mmHg 60 mmHg 81 bpm 20 rpm 97.8 F 222 lbs 65 in 36.9424 kg/m 2.15 m2 98.8 % 100 % 04/06/2013 1:59:00 PM 120 mmHg 70 mmHg 68 bpm 18 rpm 97.9 F 216 lbs 65 in 35.94 kg/m2 2.1197 m 98.7 % 98 % 03/16/2013 3:59:00 PM 122 mmHg 60 mmHg 68 bpm 20 rpm 98.2 F 223 lbs 65 in 37.1088 kg/m 2.15 m2 98.9 % 100 % Social History Name Description Comments Student (High school ) Tobacco Never smoker History of Procedures Date Ordered Description Order Status 06/05/2015 12:00 AM HUMAN PAPILLOMA VIRUS VACCINE QUADRIV 3 DOSE IM Reviewed 07/02/2015 12:00 AM INFLUENZA A/B AG EIA Returned 08/01/2013 12:00 AM CYTOPATH C/V THIN [...] 08/01/2013 [employer] MSD GARDASIL [id number] Intramuscular Left Deltoid 08/01/2013 10/06/2012 62 HPV 1997 Not Entered NE Not Entered Not Entered Not Entered 201505/23/2015 999 HPV 06/04/2015 [employer] MSD Gardasil 9 [id number] Intramuscular Left Deltoid 06/04/2015 10/06/2012 62 History [...] seasonal allergic rhinitis Aug 22 2015 4:02PM Payers Insurance Name Company Name Plan Name Plan Number Policy Number Policy Group Number Start Date Cigna Cigna [id number] N/A Amerigroup - [place] - [place] State Plan Amerigroup - [facility] State Plan [id number] N/A BCBS Bcbs [facility] [id number] Tuesday, 2013 History of Encounters Visit Date Visit Type Provider 08/22/[address] Yen Galindo DO 07/22/2015 Office visit Greg Gonzales DO 07/02/2015 Office visit Nakita Gomez OPTICAL ENGINEERING MANAGER 06/04/2015 Office visit Greg Gonzales DO 09/18/2013 Office visit Greg Gonzales DO 08/01/2013 Office visit Greg Gonzales DO 07/27/2013 Office visit Greg Gonzales DO 04/25/2013 Office visit Greg Gonzales DO
--- OUTSIDE RECORDS SUMMARY | 2017-09-09 10:56 | XMS REPORT ---
Author Author Sydni Garcia [facility] Address [address] [place], [place] [address] Care Team Providers Care Rolloff Truck Driver Name Role Phone Sydni Garcia PCP Unavailable Greg Gonzales PreferredProvider Unavailable Allergies [...] DAILY AT THE SAME TIME EACH DAY 28-800 mg-mcg oral tablet take 1 tablet by oral route daily cetirizine 10 mg oral tablet 03/02/2017 take 1 tablet (10 mg) by oral route once daily for 30 days Name [...] route once daily in the morning Dr. Donlad Christian 50 mg oral capsule 04/25/2013 take [...] HC BMI BSA BMI Percentile O2 Sat(%) 03/02/2017 12:55:00 PM 118 mmHg 78 mmHg 73 bpm 16 rpm 97.9 F 280 lbs 65 in 46.59 kg/m2 2.41 m2 99 % 99 % 09/14/2016 11:15:00 AM 112 mmHg 72 mmHg 78 bpm 18 rpm 97.9 F 246.5 lbs 65.5 in 40.3955 kg/m 2.2732 m 98.5 % 100 % 02/16/2016 2:14:00 PM [...] 12:00 AM Psychiatry Consult Reviewed Results Summary Date and Description Results 07/02/2015 10:52 AM INFLUENZA A & B NO INFLUENZA A OR B DETECTED 12/23/2015 3:08 PM TSH 1.170 uIU/mLFSH 6.10 mIU/mLProlactin 9.10 ng/mL 12/23/2015 3:51 PM Test, Urine negative 02/16/2016 3:23 PM SPECIMEN SOURCE: RT POSTERIOR SHOULDER History Of Immunizations Name Date Admin Mfg Name [facility] Code Trade Name Lot# Route Inj Vis Given Vis Pub CVX HPV 08/01/2013 [employer] MSD GARDASIL [id number] Intramuscular Left Deltoid 08/01/2013 10/06/2012 62 HPV 1997 Not Entered NE Not Entered Not Entered Not Entered 201605/23/2016 999 HPV 06/04/2015 [employer] MSD Gardasil 9 [id number] Intramuscular Left Deltoid 06/04/2015 10/06/2012 62 History [...] 2:17PM Acute pharyngitis Sep 14 2016 11:18AM Allergic rhinitis Mar 02 2017 12:59PM Payers Insurance Name Company Name Plan Name Plan Number Policy Number Policy Group Number Start Date BCBS [facility] [place] [id number] N/A BCBS Bcbs [facility] [id number] Tuesday, 2013 Amerigroup - [facility] [place] State Plan Amerigroup - [place] State Plan [id number] Saturday, 2015 Cigna Cigna [id number] May History of Encounters Visit Date Visit Type Provider 03/02/2017 Office visit Sydni Garcia GREASE PRESS HELPER 09/14/2016 Office visit Greg Gonzales DO 02/16/2016 Office visit Greg Gonzales DO 01/22/2016 Office visit 01/22/2016 Office visit Iain Bhat GREASE PRESS HELPER 12/23/2015 Office visit Greg Gonzales DO 10/29/2015 Office visit Iain Bhat GREASE PRESS HELPER 09/01/2015 Office visit 09/01/2015 Office visit Gio Dacosta MD 08/22/[address] Yen Galindo DO 07/22/2015 Office visit Greg Gonzales DO 07/02/2015 Office visit Nakita Gomez GREASE PRESS HELPER 06/04/2015 Office visit Greg Gonzales DO 09/18/2013 Office visit Greg Gonzales DO 08/01/2013 Office visit Greg Gonzales DO 07/27/2013 Office visit Greg Gonzales DO 04/25/2013 Office visit Greg Gonzales DO
--- OUTSIDE RECORDS SUMMARY | 2017-09-09 10:57 | XMS REPORT ---
Author Greg Vidales [facility] Address [address] [place], [place] [address] Care Team Providers Care Trencher Driver Name Role Phone Greg Gonzales PCP Unavailable [...] 08/01/2013 [employer] MSD GARDASIL [id number] Intramuscular Left Deltoid 08/01/2013 10/06/2012 62 HPV 1997 Not Entered NE Not Entered Not Entered Not Entered 201505/23/2015 999 HPV 06/04/2015 [employer] MSD Gardasil 9 [id number] Intramuscular Left Deltoid 06/04/2015 10/06/2012 62 History [...] 2015 10:26AM Gardasil Jun 04 2015 10:26AM Payers Insurance Name Company Name Plan Name Plan Number Policy Number Policy Group Number Start Date Amerigroup - [facility] [address] - [place] State Plan Amerifort [facility] - [facility] [address] [place] State Plan [id number] N/A BCBS Bcbs [facility] [id number] Tuesday, 2013 History of Encounters Visit Date Visit Type Provider 06/04/2015 Office visit Greg Gonzales DO 09/18/2013 Office visit Greg Gonzales DO 08/01/2013 Office visit Greg Gonzales DO 07/27/2013 Office visit Greg Gonzales DO 04/25/2013 Office visit Greg Gonzales DO
--- OUTSIDE RECORDS SUMMARY | 2017-09-09 10:57 | XMS REPORT ---
Author Author Greg Gonzales [facility] Address [address] [place], [place] [address] Care Team Providers Care Wallpaper Remover Steam Name Role Phone Greg Gonzales PCP Unavailable [...] DAILY AT THE SAME TIME EACH DAY Provera 10 mg oral tablet 12/25/2015 12/30/2015 take 1 tablet (10 mg) by oral route once daily for 5 days Name Start Date Expiration Date SIG [...] route every 12 hours for 7 days Discontinued Name Start Date Discontinued Date SIG Comments venlafaxine 50 mg oral tablet 04/25/2013 take 1 tablet (50 mg) by oral route Dr. Jones venlafaxine 50 mg oral tablet 04/25/2013 take 1 tablet (50 mg) by oral route changed by Dr. Kirk Vyvanse 50 mg oral capsule 04/25/2013 take [...] days Azo 95 mg oral tablet 12/23/2015 Problem List Description Status Onset ADHD Active Depression Active Vital Signs Date Time BP-Sys(mm[Hg] BP-Perla(mm[Hg]) HR(bpm) RR(rpm) Temp WT HT HC BMI BSA BMI Percentile O2 Sat(%) 12/23/2015 2:29:00 PM 130 mmHg 72 mmHg [...] 12:00 AM URINE CULTURE/COLONY COUNT Returned 12/23/2015 12:00 AM ASSAY THYROID STIM HORMONE Reviewed 12/23/2015 12:00 AM ASSAY OF GONADOTROPIN (FSH) Returned 12/23/2015 12:00 AM ASSAY OF PROLACTIN Returned 12/23/2015 3:51 PM URINE TEST Reviewed 08/01/2013 12:00 AM CYTOPATH C/V THIN LAYER Reviewed 08/01/2013 12:00 AM IMMUNIZATION ADMIN Reviewed 08/01/2013 12:00 AM HPV VACCINE 4 VALENT IM Reviewed Results Summary Data and Description Results 07/02/2015 10:52 AM INFLUENZA A & B NO INFLUENZA A OR B DETECTED 09/01/2015 2:55 PM HIV AG/AB COMBO 0.08 HEPATITIS C 0.12 RPR Non Reactive 12/23/2015 3:08 PM TSH 1.170 uIU/mL History Of Immunizations Name Date Admin Mfg Name Mfg Code Trade Name Lot# Route Inj Vis Given Vis Pub CVX HPV 08/01/2013 [employer] MSD GARDASIL [id number] Intramuscular Left Deltoid 08/01/2013 10/06/2012 62 HPV 1997 Not Entered NE Not Entered Not Entered Not Entered 201505/23/2015 999 HPV 06/04/2015 [employer] MSD Gardasil 9 [id number] Intramuscular Left Deltoid 06/04/2015 10/06/2012 62 History [...] 5:41PM Secondary amenorrhea Dec 23 2015 2:32PM Payers Insurance Name Company Name Plan Name Plan Number Policy Number Policy Group Number Start Date Cigna Cigna [id number] May Amerigroup - [facility] [place] State Plan Amerigroup - [facility] State Plan [id number] N/A BCBS Bcbs [facility] [id number] Tuesday, 2013 History of Encounters Visit Date Visit Type Provider 12/23/2015 Office visit Greg Gonzales DO 10/29/2015 Office visit Iain Bhat STRATEGIC MARKETING MANAGER 09/01/2015 Office visit 09/01/2015 Office visit Gio Dacosta MD 08/22/[address] Yen Galindo DO 07/22/2015 Office visit Greg Gonzales DO 07/02/2015 Office visit Naktia Gomez STRATEGIC MARKETING MANAGER 06/04/2015 Office visit Greg Gonzales DO 09/18/2013 Office visit Greg Gonzales DO 08/01/2013 Office visit Greg Gonzales DO 07/27/2013 Office visit Greg Gonzales DO 04/25/2013 Office visit Greg Gonzales DO
--- OUTSIDE RECORDS SUMMARY | 2017-09-09 10:57 | XMS REPORT | CCD ---
Author RAMIRO Aranda Unknown Address [address] [place], [place] [address] Care Team Providers Care Wholesale And Retail Merchant Name Role Phone [facility], SUDHIR DO Attphys [facility], SUHDIR DO Prisurg Vital Signs Unknown or Not Available. Allergies Unknown or Not Available. Procedures Unknown or Not Available. History of Immunizations [...] dose 83 01/01/2009 Tdap 115 01/01/2009 Novel [id number] 127 05/09/2009 Problems Unknown or Not Available. Results Unknown or Not Available. Active Medications Unknown or Not Available. Medications Administered During Visit Unknown or Not Available. Encounters Encounter Diagnosis Diagnosis Code Start Date Cyst of Bartholin's gland duct [id number] 08/28/2015 Social History Smoking Status Code Start Date End Date Never smoker [id number] Patient Decision Aids Unknown or Not Available. Discharge Instructions You were admitted to [facility] on 08/28/2015 21:36 with a principal diagnosis of Cyst of Bartholin's gland You were discharged from [facility] on 08/28/2015 22:12 Should you have any questions prior to discharge, please contact a member of your healthcare team. If you have left the hospital and have any questions, please contact your primary care physician. Chief Complaint and Reason For Visit Chief Complaint Date of Onset ABSCESS Function Status Unknown or Not Available. Referral/Transition of Care Unknown or Not Available.
--- OUTSIDE RECORDS SUMMARY | 2017-09-09 10:57 | XMS REPORT ---
Author Author Iain Bhat [facility] Address [address] [place], [place] [id number] Care Team Providers Care Varnisher Apprentice Name Role Phone Iain Bhat PCP Allergies [...] DAILY AT THE SAME TIME EACH DAY Azo 95 mg oral tablet Bactrim DS 800-160 mg oral tablet 10/29/2015 11/05/2015 take 1 tablet by oral route every 12 hours for 7 days Name Start Date Expiration Date SIG [...] by oral route daily for 30 days Discontinued Name Start Date Discontinued Date [...] HC BMI BSA BMI Percentile O2 Sat(%) 10/29/2015 5:39:00 PM 122 mmHg 64 mmHg [...] 10/30/2015 12:00 AM URINE CULTURE/COLONY COUNT Returned 08/01/2013 12:00 AM CYTOPATH C/V THIN LAYER Reviewed 08/01/2013 12:00 AM IMMUNIZATION ADMIN Reviewed 08/01/2013 12:00 AM HPV VACCINE 4 VALENT IM Reviewed Results Summary Data and Description Results 07/02/2015 10:52 AM INFLUENZA A & B NO INFLUENZA A OR B DETECTED 09/01/2015 2:55 PM HIV AG/AB COMBO 0.08 HEPATITIS C 0.12 RPR Non Reactive History Of Immunizations Name Date Admin Mfg Name Mfg Code Trade Name Lot# Route Inj Vis Given Vis Pub CVX HPV 08/01/2013 [employer] MSD GARDASIL [id number] Intramuscular Left Deltoid 08/01/2013 10/06/2012 62 HPV 1997 Not Entered NE Not Entered Not Entered Not Entered 201505/23/2015 999 HPV 06/04/2015 [employer] MSD Gardasil 9 [id number] Intramuscular Left Deltoid 06/04/2015 10/06/2012 62 History [...] cystitis with hematuria Oct 29 2015 5:41PM Payers Insurance Name Company Name Plan Name Plan Number Policy Number Policy Group Number Start Date Fransico Bateman [id number] N/A [employer] [place] Amer[employer] [place] [id number] N/A BCBS Bcbs [facility] [id number] Tuesday, 2013 History of Encounters Visit Date Visit Type Provider 10/29/2015 Office visit Iain Bhat APRN 09/01/2015 [...]
--- OUTSIDE RECORDS SUMMARY | 2017-09-09 10:58 | XMS REPORT ---
Author Gio Mcadams [facility] Address [address] [place], [place] [id number] Care Team Providers Care Hot Blaster Name Role Phone Gio Dacosta PCP Unavailable [...] EACH DAY Vyvanse 20 mg oral capsule 09/24/2015 10/24/2015 take 1 capsule by oral route daily for 30 days Name Start Date [...] route once daily in the morning Dr. Bennett Vyvanse 50 mg oral capsule 04/25/2013 take [...] 12:00 AM IMMUNOASSAY QUANT NOS NONAB Returned 08/01/2013 12:00 AM CYTOPATH C/V THIN [...] 08/01/2013 [employer] MSD GARDASIL [id number] Intramuscular Left Deltoid 08/01/2013 10/06/2012 62 HPV 1997 Not Entered NE Not Entered Not Entered Not Entered 201505/23/2015 999 HPV 06/04/2015 [employer] MSD Gardasil 9 [id number] Intramuscular Left Deltoid 06/04/2015 10/06/2012 62 History [...] Number Policy Group Number Start Date Cigtyrone Cigtyrone [id number] N/A [employer] - [facility] - [place] State Plan [employer] - [facility] State Plan [id number] N/A [facility] [id number] Tuesday, 2013 History of Encounters Visit Date [...]
--- OUTSIDE RECORDS SUMMARY | 2017-09-09 10:58 | XMS REPORT | CCD ---
Author Author TED BOOKER Organization Unknown Address [address] [place] [address] Care Team Providers Care Records Assistant Name Role Phone CLAUDIA DWYER, JOSE MANUEL [place] Attphylianet JOSE MANUEL TAYLOR MDsumattie Allergies Unknown or Not Available. Active Medications [...] dose 83 01/01/2009 Tdap 115 01/01/2009 Novel [id number] 127 05/09/2009 Plan of Treatment Unknown or Not Available. Social History Smoking Status Code Start Date End Date Never smoker [id number] Vital Signs Unknown or Not Available. Function Status Unknown or Not Available. Goals Unknown or Not Available. ASSESSMENTS Unknown or Not Available. Health Concerns Section Unknown or Not Available.
--- OUTSIDE RECORDS SUMMARY | 2017-09-09 10:59 | XMS REPORT ---
Author Greg Vidales [facility] Address [address] [place], [place] [id number] Care Team Providers Care Pump House Operator Name Role Phone Greg Gonzales PCP Unavailable Allergies and Adverse Reactions Name Reaction Notes NO KNOWN DRUG ALLERGIES Plan of Treatment Planned Activity Comments Planned Date Planned Time Plan/Goal HPV VACCINE 4 VALENT IM 06/08/2015 12:00 AM MICROBIOLOGY PROCEDURE 02/16/2016 12:00 AM Medications Active Name Start Date [...] 08/01/2013 [employer] MSD GARDASIL [id number] Intramuscular Left Deltoid 08/01/2013 10/06/2012 62 HPV 1997 Not Entered NE Not Entered Not Entered Not Entered 201505/23/2015 999 HPV 06/04/2015 [employer] MSD Gardasil 9 [id number] Intramuscular Left Deltoid 06/04/2015 10/06/2012 62 History [...] 9:27AM Wound drainage Feb 16 2016 2:17PM Payers Insurance Name Company Name Plan Name Plan Number Policy Number Policy Group Number Start Date Fransico Bateman [id number] May [employer] [place] [employer] [place] [id number] N/A BCBS Bcbs [facility] [id number] Tuesday, 2013 History of Encounters Visit Date Visit Type Provider 02/16/2016 Office visit Greg Gonzales DO 01/22/2016 Office visit 01/22/2016 Office visit Iain Bhat APRN 12/23/2015 [...]
--- OUTSIDE RECORDS SUMMARY | 2017-09-09 10:59 | XMS REPORT ---
Author Author Greg Gonzales [facility] Address [address] [place], [place] [address] Care Team Providers Care Physics Faculty Member Name Role Phone Greg Gonzales PCP Unavailable [...] 12/23/2015 12:00 AM ASSAY OF PROLACTIN Reviewed 08/01/2013 12:00 AM CYTOPATH C/V THIN [...] 08/01/2013 [employer] MSD GARDASIL [id number] Intramuscular Left Deltoid 08/01/2013 10/06/2012 62 HPV 1997 Not Entered NE Not Entered Not Entered Not Entered 201505/23/2015 999 HPV 06/04/2015 [employer] MSD Gardasil 9 [id number] Intramuscular Left Deltoid 06/04/2015 10/06/2012 62 History [...] Policy Group Number Start Date Cigna Cigna [id number] May [employer] - [place] [employer] - [facility] [place] [id number] N/A BCBS Bcbs [facility] [id number] Tuesday, 2013 History of Encounters Visit Date Visit Type Provider 12/23/2015 Office visit Greg Gonzales DO 10/29/2015 Office visit Iain Bhat PLANT CHANGER 09/01/2015 Office visit 09/01/2015 Office visit Gio Dacosta MD 08/22/[address] Yen Galindo DO 07/22/2015 Office visit Greg Gonzales DO 07/02/2015 Office visit Nakita Gomez PLANT CHANGER 06/04/2015 Office visit Greg Gonzales DO 09/18/2013 Office visit Greg Gonzales DO 08/01/2013 Office visit Greg Gonzales DO 07/27/2013 Office visit Greg Gonzales DO 04/25/2013 Office visit Greg Gonzales DO
--- OUTSIDE RECORDS SUMMARY | 2017-09-09 10:59 | XMS REPORT | Continuity of Care Document ---
Author Author [facility] Address Unknown Phone Unavailable Allergies Active Description Code Type Severity Reaction Onset Reported/Identified Relationship to Patient Clinical Status Yes No Known Drug Allergies [id number] Drug Allergy Unknown N/A 09/06/2017 Medications There is no data. Problems Date Dx Coded Attending Type Code Diagnosis Diagnosed By 03/17/2017 GOULD DO, CHARISSA C Ot O20.0 THREATENED 03/17/2017 GOULD DO, CHARISSA C Ot O30.001 TWIN PREG, UNSP NUM PLCNTA AMNIO SACS, 03/17/2017 GOULD DO, CHARISSA C Ot Z3A.01 LESS THAN 8 WEEKS GESTATION OF 07/02/2017 GOULD DO, CHARISSA C Ot O20.0 THREATENED 07/02/2017 GOULD DO, CHARISSA C Ot O30.001 TWIN PREG, UNSP NUM PLCNTA AMNIO SACS, 07/02/2017 GOULD DO, CHARISSA C Ot Z3A.01 LESS THAN 8 WEEKS GESTATION OF 07/02/2017 GOULD DO, CHARISSA C Ot O30.009 TWIN , UNSP NUM PLCNTA AMNIO 07/02/2017 GOULD DO, CHARISSA C Ot O36.8120 DECREASED MOVEMENTS, SECOND TRIMES 07/02/2017 GOULD DO, CHARISSA C Ot Z3A.27 27 WEEKS GESTATION OF 07/06/2017 GOULD DO, CHARISSA C Ot O30.009 TWIN , UNSP NUM PLCNTA AMNIO 07/06/2017 GOULD DO, CHARISSA C Ot O36.8120 DECREASED MOVEMENTS, SECOND TRIMES 07/06/2017 GOULD DO, CHARISSA C Ot Z3A.27 27 WEEKS GESTATION OF Procedures There is no data. Results Test Result Range Complete urinalysis with reflex to culture - 07/01/17 23:55 Urine color determination YELLOW NRG Urine clarity determination CLEAR NRG Urine pH measurement by test strip 6.5 5-9 Specific gravity of urine by test strip 1.015 1.016- 1.022 Urine protein assay by test strip, semi-quantitative NEGATIVE NEGATIVE Urine glucose detection by automated test strip NEGATIVE NEGATIVE Erythrocytes detection in urine sediment by light microscopy NEGATIVE NEGATIVE Urine ketones detection by automated test strip 1+ NEGATIVE Urine nitrite detection by test strip NEGATIVE NEGATIVE Urine total bilirubin detection by test strip NEGATIVE NEGATIVE Urine urobilinogen measurement by automated test strip (mass/volume) NORMAL NORMAL Urine leukocyte esterase detection by dipstick NEGATIVE NEGATIVE Automated urine sediment erythrocyte count by microscopy (number/high power field) NONE NRG Automated urine sediment leukocyte count by microscopy (number/high power field ) NONE NRG Bacteria detection in urine sediment by light microscopy TRACE NRG Squamous epithelial cells detection in urine sediment by light microscopy 10-25 NRG Crystals detection in urine sediment by light microscopy NONE NRG Casts detection in urine sediment by light microscopy NONE NRG Mucus detection in urine sediment by light microscopy MODERATE NRG Complete urinalysis with reflex to culture NO NRG Complete urinalysis with reflex to culture - 09/06/17 20:55 Urine color determination YELLOW NRG Urine clarity determination SLIGHTLY CLOUDY NRG Urine pH measurement by test strip 6.5 5-9 Specific gravity of urine by test strip 1.015 1.016- 1.022 Urine protein assay by test strip, semi-quantitative 1+ NEGATIVE Urine glucose detection by automated test strip NEGATIVE NEGATIVE Erythrocytes detection in urine sediment by light microscopy NEGATIVE NEGATIVE Urine ketones detection by automated test strip NEGATIVE NEGATIVE Urine nitrite detection by test strip NEGATIVE NEGATIVE Urine total bilirubin detection by test strip NEGATIVE NEGATIVE Urine urobilinogen measurement by automated test strip (mass/volume) NORMAL NORMAL Urine leukocyte esterase detection by dipstick NEGATIVE NEGATIVE Automated urine sediment erythrocyte count by microscopy (number/high power field) NONE NRG Automated urine sediment leukocyte count by microscopy (number/high power field ) NONE NRG Bacteria detection in urine sediment by light microscopy FEW NRG Squamous epithelial cells detection in urine sediment by light microscopy 2-5 NRG Crystals detection in urine sediment by light microscopy NONE NRG Casts detection in urine sediment by light microscopy NONE NRG Mucus detection in urine sediment by light microscopy NEGATIVE NRG Complete urinalysis with reflex to culture NO NRG Urine protein/creatinine mass ratio - 09/06/17 20:55 Urine protein measurement (mass/volume) 18 mg/dL 6-12 Urine creatinine measurement (mass/volume) 126 mg/dL 30- 125 Urine protein/creatinine mass ratio 0.14 NRG Complete blood count (CBC) with automated white blood cell (WBC) differential - 09/06/17 22:00 Blood leukocytes automated count (number/volume) 10.1 10*3/uL 4.3-11.0 Blood erythrocytes automated count (number/volume) 3.60 10*6/uL 4.35-5.85 Venous blood hemoglobin measurement (mass/volume) 9.9 g/dL 11.5-16.0 Blood hematocrit (volume fraction) 31 % 35-52 Automated erythrocyte mean corpuscular volume 85 [foz_us] 80-99 Automated erythrocyte mean corpuscular hemoglobin (mass per erythrocyte) 28 pg 25-34 Automated erythrocyte mean corpuscular hemoglobin concentration measurement ( mass/volume) 32 g/dL 32-36 Automated erythrocyte distribution width ratio 15.5 % 10.0-14.5 Automated blood platelet count (count/volume) 128 10*3/uL 130-400 Automated blood platelet mean volume measurement 11.3 [foz_us] 7.4-10.4 Automated blood neutrophils/100 leukocytes 71 % 42-75 Automated blood lymphocytes/100 leukocytes 20 % 12-44 Blood monocytes/100 leukocytes 9 % 0-12 Automated blood eosinophils/100 leukocytes 1 % 0-10 Automated blood basophils/100 leukocytes 0 % 0-10 Blood neutrophils automated count (number/volume) 7.2 10*3 1.8-7.8 Blood lymphocytes automated count (number/volume) 2.0 10*3 1.0-4.0 Blood monocytes automated count (number/volume) 0.9 10*3 0.0-1.0 Automated eosinophil count 0.1 10*3/uL 0.0-0.3 Automated blood basophil count (count/volume) 0.0 10*3/uL 0.0-0.1 Comprehensive metabolic panel - 09/06/17 22:00 Serum or plasma sodium measurement (moles/volume) 138 mmol/L 135-145 Serum or plasma potassium measurement (moles/volume) 3.7 mmol/L 3.6-5.0 Serum or plasma chloride measurement (moles/volume) 108 mmol/L 98-107 Carbon dioxide 21 mmol/L 21-32 Serum or plasma anion gap determination (moles/volume) 9 mmol/L 5-14 Serum or plasma urea nitrogen measurement (mass/volume) 6 mg/dL 7-18 Serum or plasma creatinine measurement (mass/volume) 0.52 mg/dL 0.60-1.30 Serum or plasma urea nitrogen/creatinine mass ratio 12 NRG Serum or plasma creatinine measurement with calculation of estimated glomerular filtration rate > NRG Serum or plasma glucose measurement (mass/volume) 90 mg/dL 70-105 Serum or plasma calcium measurement (mass/volume) 9.1 mg/dL 8.5-10.1 Serum or plasma total bilirubin measurement (mass/volume) 0.2 mg/dL 0.1-1.0 Serum or plasma alkaline phosphatase measurement (enzymatic activity/volume) 126 U/L 40-136 Serum or plasma aspartate aminotransferase measurement (enzymatic activity/ volume) 7 U/L 5-34 Serum or plasma alanine aminotransferase measurement (enzymatic activity/volume ) 10 U/L 0-55 Serum or plasma protein measurement (mass/volume) 5.8 g/dL 6.4-8.2 Serum or plasma albumin measurement (mass/volume) 3.1 g/dL 3.2-4.5 Serum or plasma uric acid measurement (mass/volume) - 09/06/17 22:00 Serum or plasma uric acid measurement (mass/volume) 4.0 mg/dL 2.6-7.2 Encounters ACCT No. Visit Date/Time Discharge Status Pt. Type Provider Facility Loc./Unit Complaint [id number] 03/02/2017 13:50:37 03/02/2017 23:59:59 CLS Outpatient Sydni Garcia [id number] 09/14/2016 11:40:04 09/14/2016 23:59:59 CLS Outpatient Greg Gonzales [id number] 02/16/2016 15:10:26 02/16/2016 23:59:59 CLS Outpatient Greg Gonzales [id number] 01/22/2016 18:27:42 01/22/2016 23:59:59 CLS Outpatient Iain Bhat [id number] 12/23/2015 15:23:07 12/23/2015 23:59:59 CLS Outpatient Greg Gonzales [id number] 07/22/2015 11:27:25 07/22/2015 23:59:59 CLS Outpatient Greg Gonzales [id number] 07/02/2015 10:52:10 07/02/2015 23:59:59 CLS Outpatient Nakita Gomez [id number] 06/04/2015 10:47:58 06/04/2015 23:59:59 CLS Outpatient Janet, Greg [id number] 09/18/2013 09:45:14 09/18/2013 23:59:59 CLS Outpatient Janet, Greg [id number] 08/01/2013 09:48:03 08/01/2013 23:59:59 CLS Outpatient Greg Gonzales [id number] 07/27/2013 10:05:09 07/27/2013 23:59:59 CLS Outpatient Janet Greg [id number] 09/06/2017 20:43:00 09/06/2017 22:45:00 DIS Outpatient JOSE MANUEL HARVEY DO [facility] [address] [facility] HIGH BP, DIZZY SPELLS [id number] 07/01/2017 23:42:00 07/02/2017 01:03:00 DIS Outpatient CHARISSA GOULD DO [facility] [address] [facility] NOT FEELING MOVEMENT OF BABY [id number] 02/28/2017 09:58:00 02/28/2017 23:59:59 CLS Outpatient CHARISSA GOULD DO [facility] [address] RAD THREATENED MISCARRIAGE IN EARLY
[2017-09-09 11:06] VITALS: BP 127/85
[2017-09-09] MEDS ORDERED: METOCLOPRAMIDE INJ 10 MG/2 ML (REGLAN) IV ONE (11:15)
[2017-09-09] MEDS ORDERED: FAMOTIDINE 20MG/2ML IV (PEPCID) IV ONE (11:15)
[2017-09-09] MEDS ORDERED: CITRIC ACID/SOB CIT (BICITRA) 30 ML UDC PO ONE (11:15)
[2017-09-09] MEDS ORDERED: raNItidine 50 MG/NS 100 ML IVPB IV NR ×2 (11:21)
[2017-09-09] MEDS ORDERED: LACTATED RINGERS 1,000 ML IV ONE (11:45)
[2017-09-09 11:55] LABS: BASOPHILS % (AUTO) 0 % (0-10); EOSINOPHILS # (AUTO) 0.1 10^3/uL (0.0-0.3); EOSINOPHILS % (AUTO) 1 % (0-10); HEMATOCRIT 34 % (35-52); LYMPHOCYTES # (AUTO) 1.7 X 10^3 (1.0-4.0); LYMPHOCYTES % (AUTO) 19 % (12-44); MEAN CORPUSCULAR HEMOGLOBIN 27 PG (25-34); MEAN CORPUSCULAR HGB CONC 32 G/DL (32-36); MEAN CORPUSCULAR VOLUME 84 FL (80-99); MEAN PLATELET VOLUME 12.1 FL (7.4-10.4); MONOCYTES # (AUTO) 0.8 X 10^3 (0.0-1.0); MONOCYTES % (AUTO) 10 % (0-12); NEUTROPHILS # (AUTO) 6.2 X 10^3 (1.8-7.8); NEUTROPHILS % (AUTO) 71 % (42-75); PLATELET COUNT 133 10^3/uL (130-400); RED BLOOD COUNT 4.06 10^6/uL (4.35-5.85); RED CELL DISTRIBUTION WIDTH 15.7 % (10.0-14.5); WHITE BLOOD COUNT 8.8 10^3/uL (4.3-11.0)
[2017-09-09] MEDS ORDERED: ONDANSETRON 4 MG/2 ML (SDV) Z0FRAN ONE (12:53)
[2017-09-09] MEDS ORDERED: OXYTOCIN/NORMAL SALINE 500 ML IV ONE ×3 (12:53→17:30)
[2017-09-09] MEDS ORDERED: fentaNYL INJECTION 100 MCG/2 ML AMP ONE (12:54)
[2017-09-09] MEDS ORDERED: LIDOCAINE PF 2% 5 ML (XYLOCAINE) VIAL ONE (12:55)
[2017-09-09] MEDS ORDERED: ceFAZolin 2 GM IV Premixed 50 ML IV ONE (13:00)
--- NOTE | 2017-09-09 13:05 | Progress Note-Pre Operative ---
Pre-Operative Progress Note H&P Reviewed The H&P was reviewed, patient examined and no changes noted. Date Seen by Provider: Sep 09, 2017 Time Seen by Provider: 12:30 Date H&P Reviewed: Sep 09, 2017 Time H&P Reviewed: 12:30 Pre-Operative Diagnosis: twins, malpresentation, mild preeclampsia, pruritis ( suspected IHCP) CHARISSA GOULD DO Sep 09, 2017 13:05
[2017-09-09] MEDS ORDERED: PHENYLEPHRINE 100 MCG/ML 10 ML (ANESTHESIA) SYR ONE (14:03)
[2017-09-09] MEDS ORDERED: OXYTOCIN/NORMAL SALINE 500 ML IV SCH (14:15)
[2017-09-09] MEDS ORDERED: HYDROmorphone (DILAUDID) 2 MG/ML VIAL IVP PRN ×2 (14:15→14:30)
[2017-09-09] MEDS ORDERED: MEASLES,MUMPS,RUBELLA 1 EA INJ SC SCH (14:15)
[2017-09-09] MEDS ORDERED: D5 LR IV SOLUTION 1,000 ML IV SCH (14:15)
[2017-09-09] MEDS ORDERED: TETANUS,DIPTH,PERTUSS P/F (BOOSTRIX) 0.5 ML VIAL IM SCH (14:15)
--- NOTE | 2017-09-09 14:28 | Cesarean Section Operative ---
Procedure Procedure Note Pre-operative Diagnosis: Devika Bell is a 22 /Para 1/0 , Gestational Age 37 1/7 weeks with twins (mono di), malpresentation, mild preeclampsia, pruritis of /suspected intrahepatic cholestasis of Post-operative Diagnosis: same Procedure: primary low transverse section Physician: CHARISSA GOULD Estimated blood loss: 800 mL Disposition: mother stable, babies in NBN Findings: Viable A (breech/ inutero baby B) female , Apgars 3/8/9, weight 6#8 oz; baby B viable (transverse, head maternal left, inutero baby A), female infant; Apgars 8/9, weight 6#4oz, intact placenta (single), 3vc, normal appearing uterus , tubes, and ovaries. Indications:Devika Bell is a 22 /Para 1/0 ,Gestational Age 37 1/7 weeks with twins (mono di), malpresentation, mild preeclampsia, pruritis of /suspected intrahepatic cholestasis of for primary cesaran secton Procedure Details: The patient was seen in pre-op and the procedure was discussed with the patient in full, including the risks, benefits, and alternatives. All questions were answered. The patient was taken to the operating room and a time out was performed, verifying patient and procedure. After spinal anesthesia was placed by our anesthesia colleagues, the patient was placed in the dorsal supine with leftward tilt for uterine displacement.~ Her abdomen was then prepped and draped in the typical sterile fashion. A Pfannenstiel skin incision was made using a scalpel and carried down through the underlying fascia. The fascia was incised in the midline and tented up using Amisha clamps. On both the inferior and superior fascia side the rectus muscle was dissected off bluntly and sharply using Castro scissors. The peritoneum was identified and entered bluntly in the midline. This was then stretched laterally using manual strength. After entering the abdominal cavity and confirming lack of intraperitoneal adhesions, an extra large Landry retractor was placed and the lower uterine segment was visualized. A scalpel was utilized to make a low transverse uterine incision. MIKA was very thin. Amniotomy was performed with an Allis clamp with return of clear fluid. Baby A was complete breech with left hip presenting. The infant's feet were grasped and delivered. The infant was delivered up to the scapulae and then the arms were swept across the chest to delivery. The head was then delivered in the Smellie/Mariceau/Veit maneuver, delivering the head. Mouth and nares were suctioned with bulb suction. After the umbilical cord was clamped and cut, the was handed off to the pediatric staff. A sample of cord blood was then obtained. The second twins membranes were ruptured. This infant was transverse back up with head to the left. The head was brought to the level of the incision and then delivered without difficulty. Mouth and nares were suctioned with bulb suction. After the umbilical cord was clamped and cut, the was handed off to the pediatric staff. A sample of cord blood was then obtained. The placenta was delivered intact via uterine massage. The uterus was cleared of all clots and debris. The uterine incision was closed using 0 Vicryl in a running locked fashion. A second imbricated layer was placed using 0 Vicryl in a running fashion as well. The bilateral tubes and ovaries appeared normal. The abdominal gutters were cleared of all clots and debris. A final check of the uterine incision showed it to be hemostatic. The peritoneum was closed using 3-0 Vicryl in a running fashion. The fascia was closed with 0 Vicryl in a running fashion. The subcutaneous space was hemostatic, and irrigated. The subcutaneous space was closed with 3-0 Plain in several single interrupted stitches. The skin was then closed using 4-0 Monocryl in a running subcuticular fashion. The skin edges were reapproximated together and were hemostatic. A pressure dressing was applied. All sponge, lap and needle counts were correct at the end of the procedure per nursing. Vitals - Labs Labs Laboratory Tests 09/09/17 11:48: White Blood Count 8.8, Red Blood Count 4.06L, Hemoglobin 11.0L, Hematocrit 34L, Mean Corpuscular Volume 84, Mean Corpuscular Hemoglobin 27, Mean Corpuscular Hemoglobin Concent 32, Red Cell Distribution Width 15.7H, Platelet Count 133, Mean Platelet Volume 12.1H, Neutrophils (%) (Auto) 71, Lymphocytes (%) (Auto) 19 , Monocytes (%) (Auto) 10, Eosinophils (%) (Auto) 1, Basophils (%) (Auto) 0, Neutrophils # (Auto) 6.2, Lymphocytes # (Auto) 1.7, Monocytes # (Auto) 0.8, Eosinophils # (Auto) 0.1, Basophils # (Auto) 0.0 CHARISSA GOULD DO Sep 09, 2017 14:28
[2017-09-09] MEDS ORDERED: ONDANSETRON 4 MG/2 ML (SDV) Z0FRAN IVP PRN (14:30)
[2017-09-09] MEDS ORDERED: ACHD5005 PO (14:30)
[2017-09-09] MEDS ORDERED: DOCU100C37 PO (14:30)
[2017-09-09] MEDS ORDERED: IBUP-844 PO (14:30)
[2017-09-09] MEDS ORDERED: fentaNYL INJECTION 100 MCG/2 ML AMP IVP PRN (14:30)
--- NOTE | 2017-09-09 14:32 | Discharge Inst-Women's Service ---
Discharge Inst-Women's Serv Depart Medication/Instructions New, Converted or Re-Newed RX: RX on Chart Final Diagnosis twins, malpresentation mild preeclampsia BMI 51 pruritus of primary section Consults/Follow Up Additional Follow Up: Yes Activity Activity: Activity as Tolerated Driving Instructions: No Driving for 1 Week NO SMOKING: NO SMOKING Nothing Inside Vagina: No Douching, No [place], No Tampons Diet Discharge Diet: No Restrictions Symptoms to Report to : Swelling Increased, Bleeding Excessive, Pain Increased, Fever Over 101 Degrees F, Vaginal Bleeding Increase, Cramps in Feet or Legs, Vaginal Discharge Foul For Any Problems or Questions: Contact Your Physician Skin/Wound Care Infection Signs and Symptoms: Increased Redness, Foul Odor of Wound, Increased Drainage, Skin Itchy or Has a Rash, Increased Swelling, Temperature Above 101 F Operative Area Clean and Dry: Keep Incision Clean/Dry Stitches/[place]/Dermabond: Dermabond Bathing Instructions: CHARISSA Sparks DO Sep 09, 2017 14:32
[2017-09-09] MEDS: KETOROLAC 30 MG/ML VIAL IVP SCH ×2 (14:49→20:56)
[2017-09-09 15:35] VITALS: BP 122/78
[2017-09-09] MEDS ORDERED: LACTATED RINGERS 1,000 ML IV PRN (16:30)
[2017-09-09] MEDS ORDERED: METHYLERGONOVINE 0.2 MG/ML (METHERGINE) AMP ONE (16:43)
[2017-09-09] MEDS: HYDROcodone/APAP 5 MG/325 MG (LORTAB) TAB PO PRN ×2 (16:55→23:15)
[2017-09-09] MEDS: DOCUSATE SODIUM 100 MG (COLACE) CAP PO SCH (20:55)
[2017-09-09 21:00] VITALS: BP 130/83
[2017-09-09] MEDS ORDERED: CATHETER FLUSH 10 ML SYR IV SCH (22:00)
[2017-09-10 03:00] VITALS: BP 124/77
[2017-09-10] MEDS: KETOROLAC 30 MG/ML VIAL IVP SCH ×2 (03:00→09:03)
[2017-09-10 06:57] LABS: BASOPHILS % (AUTO) 0 % (0-10); EOSINOPHILS % (AUTO) 0 % (0-10); HEMATOCRIT 27 % (35-52); HEMOGLOBIN 8.8 G/DL (11.5-16.0); LYMPHOCYTES # (AUTO) 1.9 X 10^3 (1.0-4.0); LYMPHOCYTES % (AUTO) 20 % (12-44); MEAN CORPUSCULAR HEMOGLOBIN 27 PG (25-34); MEAN CORPUSCULAR HGB CONC 33 G/DL (32-36); MEAN CORPUSCULAR VOLUME 83 FL (80-99); MEAN PLATELET VOLUME 11.6 FL (7.4-10.4); MONOCYTES % (AUTO) 10 % (0-12); NEUTROPHILS # (AUTO) 6.5 X 10^3 (1.8-7.8); NEUTROPHILS % (AUTO) 69 % (42-75); PLATELET COUNT 105 10^3/uL (130-400); RED BLOOD COUNT 3.25 10^6/uL (4.35-5.85); RED CELL DISTRIBUTION WIDTH 15.3 % (10.0-14.5); WHITE BLOOD COUNT 9.4 10^3/uL (4.3-11.0)
[2017-09-10] MEDS: HYDROcodone/APAP 5 MG/325 MG (LORTAB) TAB PO PRN ×4 (08:18→21:47)
[2017-09-10 08:59] VITALS: BP 120/74
[2017-09-10] MEDS: DOCUSATE SODIUM 100 MG (COLACE) CAP PO SCH ×2 (09:00→21:47)
--- NOTE | 2017-09-10 10:46 | Postpartum Progress Note ---
Note Note Day # 1 Subjective: Patient is without complaints. Ambulating, voiding. Tolerating a regular diet without nausea or vomiting. Normal lochia. Pain is well controlled with oral pain medications. Objective: Vital Sign - Last 24 Hours 09/09/17 09/09/17 09/09/17 09/10/17 11:06 15:35 21:00 03:00 Temp 97.3 99.0 98.8 98.4 Pulse 90 89 88 103 Resp 18 18 B/P (MAP) 127/85 (99) 122/78 (93) 130/83 (99) 124/77 (93) Pulse Ox 99 98 98 O2 Delivery Room Air Room Air Room Air 09/10/17 08:59 Temp 98.6 Pulse 88 Resp 18 B/P (MAP) 120/74 (89) Pulse Ox 98 O2 Delivery Room Air Intake and Output 09/09/17 09/09/17 09/10/17 15:00 23:00 07:00 Intake Total 1050 ml 1102 ml 1100 ml Output Total 950 ml 200 ml Balance 100 ml 1102 ml 900 ml Laboratory Tests Test 09/09/17 11:48 09/10/17 06:49 Range/Units White Blood Count 8.8 9.4 4.3-11.0 10^3/uL Red Blood Count 4.06 L 3.25 L 4.35-5.85 10^6/uL Hemoglobin 11.0 L 8.8 L 11.5-16.0 G/DL Hematocrit 34 L 27 L 35-52 % Mean Corpuscular Volume 84 83 80-99 FL Mean Corpuscular Hemoglobin 27 27 25-34 PG Mean Corpuscular Hemoglobin Concent 32 33 32-36 G/DL Red Cell Distribution Width 15.7 H 15.3 H 10.0-14.5 % Platelet Count 133 105 L 130-400 10^3/uL Mean Platelet Volume 12.1 H 11.6 H 7.4-10.4 FL Neutrophils (%) (Auto) 71 69 42-75 % Lymphocytes (%) (Auto) 19 20 12-44 % Monocytes (%) (Auto) 10 10 0-12 % Eosinophils (%) (Auto) 1 0 0-10 % Basophils (%) (Auto) 0 0 0-10 % Neutrophils # (Auto) 6.2 6.5 1.8-7.8 X 10^3 Lymphocytes # (Auto) 1.7 1.9 1.0-4.0 X 10^3 Monocytes # (Auto) 0.8 1.0 0.0-1.0 X 10^3 Eosinophils # (Auto) 0.1 0.0 0.0-0.3 10^3/uL Basophils # (Auto) 0.0 0.0 0.0-0.1 10^3/uL Physical Exam: General - Alert and oriented, no apparent distress Abdomen - Soft, appropriately tender to palpation, non-distended, fundus firm at umbilicus Extremities - no edema, negative Leanne's bilaterally Incision- c/d/i Assessment: POD 1 PLTCS Twin Acute blood loss anemia Plan: Routine care. Encourage breast feeding. Encourage ambulation. Ferrous sulfate supplementation. Plan for discharge tomorrow Vitals - Labs Vital Signs - I&O Vital Signs Date Time Temp Pulse Resp B/P (MAP) Pulse Ox O2 Delivery O2 Flow Rate FiO2 09/10/17 08:59 98.6 88 18 120/74 (89) 98 Room Air 09/10/17 03:00 98.4 103 18 124/77 (93) 98 Room Air 09/09/17 21:00 98.8 88 18 130/83 (99) 98 Room Air 09/09/17 15:35 99.0 89 18 122/78 (93) 99 Room Air 09/09/17 11:06 97.3 90 20 127/85 (99) I & O 09/10/17 07:00 Intake Total 3252 ml Output Total 1150 ml Balance 2102 ml Labs Laboratory Tests 09/09/17 11:48: White Blood Count 8.8, Red Blood Count 4.06L, Hemoglobin 11.0L, Hematocrit 34L, Mean Corpuscular Volume 84, Mean Corpuscular Hemoglobin 27, Mean Corpuscular Hemoglobin Concent 32, Red Cell Distribution Width 15.7H, Platelet Count 133, Mean Platelet Volume 12.1H, Neutrophils (%) (Auto) 71, Lymphocytes (%) (Auto) 19 , Monocytes (%) (Auto) 10, Eosinophils (%) (Auto) 1, Basophils (%) (Auto) 0, Neutrophils # (Auto) 6.2, Lymphocytes # (Auto) 1.7, Monocytes # (Auto) 0.8, Eosinophils # (Auto) 0.1, Basophils # (Auto) 0.0 09/10/17 06:49: White Blood Count 9.4, Red Blood Count 3.25L, Hemoglobin 8.8L, Hematocrit 27L, Mean Corpuscular Volume 83, Mean Corpuscular Hemoglobin 27, Mean Corpuscular Hemoglobin Concent 33, Red Cell Distribution Width 15.3H, Platelet Count 105L, Mean Platelet Volume 11.6H, Neutrophils (%) (Auto) 69, Lymphocytes (%) (Auto) 20 , Monocytes (%) (Auto) 10, Eosinophils (%) (Auto) 0, Basophils (%) (Auto) 0, Neutrophils # (Auto) 6.5, Lymphocytes # (Auto) 1.9, Monocytes # (Auto) 1.0, Eosinophils # (Auto) 0.0, Basophils # (Auto) 0.0 JOSE MANUEL HARVEY DO Sep 10, 2017 10:46 am
--- NOTE | 2017-09-10 10:56 | Anesthesia-Regional Post-Op ---
Regional Patient Condition Mental Status: Alert, Oriented x3 Circulation: Same as Pre-Op Headache: Absent Sensation: Full Recovery Motor Block: Absent Post Op Complications Complications None Follow Up Care/Instructions Patient Instructions None needed. Anesthesia/Patient Condition Patient is doing well, no complaints, stable vital signs, no apparent adverse anesthesia problems. No complications reported per nursing. TAMI JIMENEZ CRNA Sep 10, 2017 10:56
[2017-09-10 13:25] VITALS: BP 112/69
[2017-09-10 15:35] VITALS: BP 123/77
[2017-09-10] MEDS: IBUPROFEN 600 MG (MOTRIN) TAB PO SCH ×2 (15:36→21:47)
[2017-09-10] MEDS: ENOXAPARIN 40 MG/0.4 ML (LOVENOX) SYR SC SCH (15:38)
[2017-09-10] MEDS: FERROUS SULF 325 MG (IRON) TAB PO SCH (18:13)
[2017-09-10 21:45] VITALS: BP 121/64
[2017-09-11 04:11] VITALS: BP 122/68
[2017-09-11] MEDS: IBUPROFEN 600 MG (MOTRIN) TAB PO SCH ×2 (04:11→09:48)
--- NOTE | 2017-09-11 08:40 | Progress Note-Standard ---
Standard Progress Note Progress Notes/Assess & Plan Date Seen by Provider: Sep 11, 2017 Time Seen by Provider: 08:35 Progress/Assessment & Plan Day # 2 Subjective: Patient is without complaints. Ambulating, voiding. Tolerating a regular diet without nausea or vomiting. Normal lochia. Pain is well controlled with oral pain medications. Objective: Vital Sign - Last 24 Hours 09/10/17 09/10/17 09/10/17 09/10/17 08:59 13:25 15:35 21:45 Temp 98.6 98.3 97.9 98.2 Pulse 88 89 90 98 Resp 18 18 18 18 B/P (MAP) 120/74 (89) 112/69 (83) 123/77 (92) 121/64 (83) Pulse Ox 98 98 97 97 O2 Delivery Room Air Room Air 09/11/17 04:11 Temp 97.6 Pulse 91 Resp 18 B/P (MAP) 122/68 (86) Pulse Ox 97 Physical Exam: General - Alert and oriented, no apparent distress Abdomen - Soft, appropriately tender to palpation, non-distended, fundus firm at umbilicus Extremities - no edema, negative Leanne's bilaterally Incision- c/d/i Assessment: POD 2 PLTCS Twin Acute blood loss anemia Plan: Routine care. Encourage breast feeding. Encourage ambulation. Ferrous sulfate supplementation. Plan for discharge today JOSE MANUEL HARVEY DO Sep 11, 2017 8:40 am
[2017-09-11] MEDS: HYDROcodone/APAP 5 MG/325 MG (LORTAB) TAB PO PRN (09:47)
[2017-09-11] MEDS: FERROUS SULF 325 MG (IRON) TAB PO SCH (09:48)
[2017-09-11] MEDS: DOCUSATE SODIUM 100 MG (COLACE) CAP PO SCH (09:48)
[2017-09-11 09:50] VITALS: BP 126/72
[2017-09-11] MEDS: ENOXAPARIN 40 MG/0.4 ML (LOVENOX) SYR SC SCH (09:59)
== END 2017-09-11 12:30 | disposition home or self-care (01) | DRG 765 ==
LOC: LDRP 10:47
PROVIDERS: ADMIT Obstetrics & Gynecology; ATTEND Obstetrics & Gynecology
PROC: 10D00Z1 Extraction of Products of Conception, Low, Open Approach (ICD-10-PCS; principal; 2017-09-09 13:07)
DX: O14.03 Mild to moderate pre-eclampsia, third trimester (principal); O99.03 Anemia complicating the puerperium; D62 Acute posthemorrhagic anemia; O99.713 Diseases of the skin and subcutaneous tissue complicating pregnancy, third trimester; L29.9 Pruritus, unspecified; O30.033 Twin pregnancy, monochorionic/diamniotic, third trimester; O32.1XX0 Maternal care for breech presentation, not applicable or unspecified; O32.2XX0 Maternal care for transverse and oblique lie, not applicable or unspecified; Z3A.37 37 weeks gestation of pregnancy; Z37.2 Twins, both liveborn; Z23 Encounter for immunization
CPT/HCPCS: 36415; 85025; 86850; 86900; 86901; 90715; 94664

== ENCOUNTER → 2019-12-24 | Outpatient (CLI) | payer BC, MEDICAID ==
[~2019-12-24] MED LIST changes: +ACHD5005 PO; +DOCU100C37 PO; +IBUP-844 PO
--- NOTE | 2019-12-24 13:31 | Diagnostic Imaging Report ---
INDICATION: survey. TECHNIQUE: Multiple Real-time grayscale images were obtained over the gravid uterus. COMPARISON: None FINDINGS: There is a single live fetus in a variable presentation. The heart rate was recorded at 152 BPM. The placenta is posterior. No previa is identified. The amniotic fluid volume appears normal. The survey demonstrates the kidneys, bladder, and stomach to be unremarkable. The brain is unremarkable. There is a four-chamber heart. There is a three-vessel cord with normal insertion. The spine is unremarkable. The cervical length is 4.7 cm. Biometrical measurements are as follows: Biparietal 4.91 cm, age 20 weeks 6 days. Head circumference 19.66 cm, age 21 weeks 6 days. Abdominal circumference 17.63 cm, age 22 weeks 4 days. Femur length 3.88 cm, age 22 weeks 4 days. Sonographic estimate age: 22 weeks 0 days. Sonographic estimated date of delivery: 04/28/2020. Estimated Weight: 298 gm (+/- 73 gm). LMP percentile: 70%. heart rate: 152 beats per minute. number: 1 of 1. IMPRESSION: Single live IUP of 22 weeks 0 days gestational age. The estimated date of confinement sonographically is 04/28/2020. Dictated by: Dictated on workstation # [id number]
== END ==
LOC: RAD 11:34
PROVIDERS: ATTEND Obstetrics & Gynecology
DX: Z36.89 Encounter for other specified antenatal screening (principal); Z3A.22 22 weeks gestation of pregnancy
CPT/HCPCS: 76805

== ENCOUNTER 2020-04-22 06:00 | Inpatient (IN) | payer BC ==
[~2020-04-22] VITALS: Ht 162.6 cm; Wt 151.7 kg
[2020-04-29] VITALS (8 sets, daily range): BP systolic 116–140; BP diastolic 59–80
--- NOTE | 2020-04-29 05:50 | NUR ---
NISHI JULIAN presented to unit via W/C from ED, accompanied by SO, for or R C/S. NISHI JULIAN weighed, gowned, voided, and to bed. EFHM and TOCO applied, VS taken. NISHI JULIAN oriented to bed controls, call light, TV, heat, and A/C controls.
[2020-04-29 06:44] LABS: BASOPHILS % (AUTO) 0 % (0-10); EOSINOPHILS % (AUTO) 1 % (0-10); HEMATOCRIT 33 % (35-52); HEMOGLOBIN 10.3 g/dL (11.5-16.0); LYMPHOCYTES # (AUTO) 1.9 10^3/uL (1.0-4.0); LYMPHOCYTES % (AUTO) 23 % (12-44); MEAN CORPUSCULAR HEMOGLOBIN 27 pg (25-34); MEAN CORPUSCULAR HGB CONC 31 g/dL (32-36); MEAN CORPUSCULAR VOLUME 87 fL (80-99); MEAN PLATELET VOLUME 12.6 fL (9.0-12.2); MONOCYTES # (AUTO) 0.6 10^3/uL (0.0-1.0); MONOCYTES % (AUTO) 7 % (0-12); NEUTROPHILS # (AUTO) 5.7 10^3/uL (1.8-7.8); NEUTROPHILS % (AUTO) 68 % (42-75); PLATELET COUNT 137 10^3/uL (130-400); WHITE BLOOD COUNT 8.3 10^3/uL (4.3-11.0)
[2020-04-29] MEDS ORDERED: LACTATED RINGERS 1,000 ML IV ONE ×2 (08:03→08:17)
[2020-04-29] MEDS ORDERED: CITRIC ACID/SOB CIT (BICITRA) 30 ML UDC ONE (08:16)
[2020-04-29] MEDS ORDERED: METOCLOPRAMIDE INJ 10 MG/2 ML (REGLAN) ONE (08:16)
[2020-04-29] MEDS ORDERED: FAMOTIDINE 20MG/2ML IV (PEPCID) ONE (08:17)
[2020-04-29] MEDS ORDERED: ceFAZolin 2 GM IV Premixed 50 ML ONE (08:20)
[2020-04-29] MEDS ORDERED: CATHETER FLUSH 10 ML SYR IV PRN (08:30)
[2020-04-29] MEDS ORDERED: LACTATED RINGERS 1,000 ML IV PRN ×2 (08:30)
[2020-04-29] MEDS ORDERED: METOCLOPRAMIDE INJ 10 MG/2 ML (REGLAN) IV ONE (08:30)
[2020-04-29] MEDS ORDERED: FAMOTIDINE 20MG/2ML IV (PEPCID) IV ONE (08:30)
[2020-04-29] MEDS ORDERED: CITRIC ACID/SOB CIT (BICITRA) 30 ML UDC PO ONE (08:30)
[2020-04-29] MEDS ORDERED: fentaNYL INJECTION 100 MCG/2 ML AMP ONE (08:31)
--- NOTE | 2020-04-29 08:44 | History & Physical-OB ---
OB - Chief Complaint & HPI Date/Time Date of Admission: Date of Admission: Apr 29, 2020 at 05:46 Date seen by a Provider: Apr 29, 2020 Time Seen by a Provider: 08:00 Chief Complaint/History OB-Reason for Admission/Chief: Section Hx : 2 Hx Para: 2 Expected Date of Delivery: Apr 29, 2020 Gestational Age in Weeks: 40 Gestational Age in Days: 0 Indication for : desires repeat Other reason for admission: this is an updated H&P. Patient was scheduled 04/22/20 for TOLAC but cervix was unfavorable. She was rescheduled today, but cervix is not favorable, which does not meet the requirements for TOLAC at our institution, so she is prepared for repeat CS. First CS was due to twins. She is 40 weeks gestation. complicated by anxiety, but zoloft did not help much so she has discontinued. History of Labs a+/- Kishan VDRL NR HepBSag- HIV - GBS - Allergies and Home Medications Allergies Coded Allergies: No Known Drug Allergies (Unverified , 09/06/17) Patient Home Medication List Home Medication List Reviewed: Yes OB - History Hx of Present Care: Yes Ultrasounds: Normal mid trimester US Obstetrical Complications: None Medical Complications: None Information Induced Hypertension: Yes (last few visits, no meds) Maternal Gestational Diabetes: No Hemorrhage: No Obstetrical History Hx : 3 Hx Para: 2 Hx # Term Pregnancies: 1 Hx # Pregnancies: 0 Number of Living Children: 2 Hx Multiple Gestation: Yes Delivery History Hx Section: Yes Adverse Rxn to Tranfusion: No Patient Past Medical History anxiety/depression Social History/Family History HIV/AIDS: No Recent Infectious Disease Expo: No Sexually Transmitted Disease: No Alcohol Use: Denies Use Recreational Drug Use: No Immunizations Hepatitis A: No Hepatitis B: No Tetanus Booster (TDap): Less than 5yrs Date of Influenza Vaccine: Mar 03, 2020 Rubella: immune RPR/VDRL: Negative GBS Status: Negative HBsAG: Negative OB - Admission Exam Physical Exam Vitals: Vital Signs 04/29/20 06:00 Temp 37.0 Pulse 100 Resp 20 Pulse Ox 98 O2 Delivery Room Air HEENT: NCAT Heart: Rhythm Normal Lungs: Clear Abdomen: Gravid Extremities: Normal Reflexes: Normal Cervical Dilatation: Fingertip Effacement: 25% Station: Ballotable Membranes: Intact Heart Rate: 130's Accelerations: Accelerations Present Decelerations: No Decelerations Short Term Variability: Present Delivery Nurse Variability: Average (6-25) Contractions on Admission: 6-10 Minutes Apart Labs Laboratory Tests Test 04/29/20 06:33 Range/Units White Blood Count 8.3 4.3-11.0 10^3/uL Red Blood Count 3.85 3.80-5.11 10^6/uL Hemoglobin 10.3 L 11.5-16.0 g/dL Hematocrit 33 L 35-52 % Mean Corpuscular Volume 87 80-99 fL Mean Corpuscular Hemoglobin 27 25-34 pg Mean Corpuscular Hemoglobin Concent 31 L 32-36 g/dL Red Cell Distribution Width 14.1 10.0-14.5 % Platelet Count 137 130-400 10^3/uL Mean Platelet Volume 12.6 H 9.0-12.2 fL Immature Granulocyte % (Auto) 1 % Neutrophils (%) (Auto) 68 42-75 % Lymphocytes (%) (Auto) 23 12-44 % Monocytes (%) (Auto) 7 0-12 % Eosinophils (%) (Auto) 1 0-10 % Basophils (%) (Auto) 0 0-10 % Neutrophils # (Auto) 5.7 1.8-7.8 10^3/uL Lymphocytes # (Auto) 1.9 1.0-4.0 10^3/uL Monocytes # (Auto) 0.6 0.0-1.0 10^3/uL Eosinophils # (Auto) 0.0 0.0-0.3 10^3/uL Basophils # (Auto) 0.0 0.0-0.1 10^3/uL Immature Granulocyte # (Auto) 0.1 0.0-0.1 10^3/uL OB - Assessment/Plan/Diagnosis Assessment Assessment: section Admission Dx 1. Previous section 2. History of twins Desires TOLAC but does not meet criteria. Plan repeat seciton Risks include bleeding, infection, injury to bowel bladder and ureter. She understands and consents hare been signed. Prophylactic antibiotics and SCDs will be used. Admission Status: Inpatient Order (span 2 midnights) Reason for Inpatient Admission: section Plan Plan: Section CHARISSA GOULD DO Apr 29, 2020 08:43
[2020-04-29] MEDS ORDERED: OXYTOCIN PRE-MIX DRIP 1,000 ML IV ONE (09:21)
--- NOTE | 2020-04-29 09:48 | Cesarean Section Operative ---
Procedure Procedure Note Pre-operative Diagnosis: Devika Bell is a 22 /Para 3 / 2, Gestational Age 40 weeks, previous section Post-operative Diagnosis: same Procedure: Same low transverse section Physician: CHARISSA GOULD Estimated blood loss: 500 mL Disposition: stable Findings: Viable male , Apgars 8/9, weight 9#12 ounces, intact placenta, 3vc, normal appearing uterus, tubes, and ovaries. Indications:Devika Bell is a 22 /Para 3 / 2,Gestational Age 40 weeks, previous section; presenting for repeat section Devika had CS in 2018 for twins and desired a /TOLAC for this . S he was scheduled at 39 weeks for induction but cervix was not favorable. she was rescheduled for 40 weeks, but cervix is still very unfavorable. She is prepped for a repeat section. Procedure Details: The patient was seen in pre-op and the procedure was discussed with the patient in full, including the risks, benefits, and alternatives. All questions were answered. The patient was taken to the operating room and a time out was performed, verifying patient and procedure. After spinal anesthesia was placed by our anesthesia colleagues, the patient was placed in the dorsal supine with leftward tilt for uterine displacement.~ Her abdomen was then prepped and draped in the typical sterile fashion. A Pfannensti el skin incision was made using a scalpel and carried down through the underlying fascia. The fascia was incised in the midline and tented up using Amisha clamps. On both the inferior and superior fascia side the rectus muscle was dissected off bluntly and sharply using Castro scissors. The peritoneum was identified and entered bluntly in the midline. This was then stretched laterally using manual strength. After entering the abdominal cavity and noting there was an omental adhesion, an extra large Landry retractor was placed and the lower uterine segment was visualized. I dealt with the omental adhesion after the delivery. The lower uterine segment was noted to be thin but not paper thin. A scalpel was utilized to make a low transverse uterine incision. Amniotomy was performed with an Allis clamp with return of clear fluid. The head was noted to be in the OP presentation with a hand at the chin and a bandolero cord. The infant's head was grasped and brought to the level of the incision. Silastic suction applied to facilitate delivery of the head, and infant was delivered without difficulty. Mouth and nares were suctioned with bulb suction. After the umbilical cord was clamped and cut, the infant was handed off to the pediatric staff. A sample of cord blood was then obtained. The placenta was delivered intact via uterine massage. The uterus was cleared of all clots and debris. The uterine incision was closed using 0 Vicryl in a running locked fashion. A second imbricated layer was placed using 0 Vicryl in a running fashion as well. The bilateral tubes and ovaries appeared normal. The abdominal gutters were cleared of all clots and debris. A final check of the uterine incision showed it to be hemostatic. The peritoneum was closed using 3-0 Vicryl in a running fashion. The fascia was closed with 0 Vicryl in a running fashion. The subcutaneous space was hemostatic, and irrigated. The subcutaneous space was closed with 3-0 Vicryl in several single interrupted stitches. The skin was then closed using 4-0 Monocryl in a running subcuticular fashion. The skin edges were reapproximated together and were hemostatic. A pressure dressing was applied. All sponge, lap and needle counts were correct at the end of the procedure per nursing. Vitals - Labs Vital Signs - I&O Vital Signs Date Time Temp Pulse Resp B/P (MAP) Pulse Ox O2 Delivery O2 Flow Rate FiO2 04/29/20 08:44 37.1 106 18 134/73 (93) 04/29/20 06:00 37.0 100 20 98 Room Air Labs Laboratory Tests 04/29/20 06:33: White Blood Count 8.3, Red Blood Count 3.85, Hemoglobin 10.3L, Hematocrit 33L, Mean Corpuscular Volume 87, Mean Corpuscular Hemoglobin 27, Mean Corpuscular Hemoglobin Concent 31L, Red Cell Distribution Width 14.1, Platelet Count 137, Mean Platelet Volume 12.6H, Immature Granulocyte % (Auto) 1, Neutrophils (%) (Auto) 68, Lymphocytes (%) (Auto) 23, Monocytes (%) (Auto) 7, Eosinophils (%) (Auto) 1, Basophils (%) (Auto) 0, Neutrophils # (Auto) 5.7, Lymphocytes # (Auto) 1.9, Monocytes # (Auto) 0.6, Eosinophils # (Auto) 0.0, Basophils # (Auto) 0.0, Immature Granulocyte # (Auto) 0.1 CHARISSA GOULD DO Apr 29, 2020 09:48
[2020-04-29] MEDS ORDERED: BUPIVACAINE 0.5% 30 ML (SENSORCAINE) VIAL ONE (09:52)
[2020-04-29] MEDS ORDERED: OXYTOCIN PRE-MIX DRIP 500 ML IV SCH (10:00)
[2020-04-29] MEDS ORDERED: TETANUS,DIPTH,PERTUSS P/F (BOOSTRIX) 0.5 ML VIAL IM SCH (10:00)
[2020-04-29] MEDS ORDERED: MEASLES,MUMPS,RUBELLA 1 EA INJ SC SCH (10:00)
--- NOTE | 2020-04-29 10:57 | NUR ---
PT TRANSFERRED FROM -RECOVERY TO -307 VIA BED IN STABLE CONDITION ACC BY THIS RN, S/O AND INFANT.
[2020-04-29] MEDS: KETOROLAC 30 MG/ML VIAL IV SCH ×3 (11:10→22:29)
--- NOTE | 2020-04-29 12:34 | NUR ---
Mother doing skin to skin with infant. Resting well. Vital signs obtained. No further needs at this time.
--- NOTE | 2020-04-29 13:45 | NUR ---
Pt up to bathroom with assistance. Voided 100cc. +pericare, new gown applied. Linens changed. Pt voices being in minimal pain. Pt back to bed and comfortable. No further needs at this time.
[2020-04-29] MEDS: ACETAMINOPHEN 500 MG TAB (TYLENOL) PO SCH ×2 (14:16→22:29)
--- NOTE | 2020-04-29 14:16 | NUR ---
Scheduled meds given. Mother breast feeding infant. Fresh ice water provided. No further needs at this time.
[2020-04-29] MEDS ORDERED: ACET-93 PO (15:05)
[2020-04-29] MEDS ORDERED: OXC5T PO (15:05)
[2020-04-29] MEDS ORDERED: FERR325T18 PO (15:05)
[2020-04-29] MEDS ORDERED: IBUP-844 PO (15:05)
--- NOTE | 2020-04-29 15:06 | Short Stay Summary ---
Discharge Summary Hospital Course Was the Problem List Reviewed?: Yes Final Diagnosis: 40 weeks of gestation, previous section, Hospital Course Date of Admission: Apr 29, 2020 at 05:46 Admission Diagnosis : Family Physician/Provider: Charissa Gould DO Date of Discharge: 05/01/20 Discharge Diagnosis: 40 weeks gestation Previous section acute blood loss anemia Hospital Course: Patient has a previous section due to twins. She had stong desire for TOLAC but cervix was not favorable at time of possibile indcution so this was postponed to 40 weeks of gestation. At 40 weeks, her cervix was still not favorable so she did not meet the requirements of TOLAC. A repeat section was done without complication. The was LGA/macrosomic (9#12 ounces) and OP presentation. She was admitted to women's services after delivery and post operative pain management was with toradol/TAP block/ tylenol and oxycodone. She was changed to ibuprofen after 24 hours. She had an uncomplicated post operative course. POD 1 hemoglobin was 8.8. Vitals were stable so iron was replaced. She was discharge to home on post day two. She is . Labs and Pending Lab Test: Laboratory Tests 04/29/20 06:33: White Blood Count 8.3, Red Blood Count 3.85, Hemoglobin 10.3L, Hematocrit 33L, Mean Corpuscular Volume 87, Mean Corpuscular Hemoglobin 27, Mean Corpuscular Hemoglobin Concent 31L, Red Cell Distribution Width 14.1, Platelet Count 137, Mean Platelet Volume 12.6H, Immature Granulocyte % (Auto) 1, Neutrophils (%) (Auto) 68, Lymphocytes (%) (Auto) 23, Monocytes (%) (Auto) 7, Eosinophils (%) ( Auto) 1, Basophils (%) (Auto) 0, Neutrophils # (Auto) 5.7, Lymphocytes # (Auto) 1.9, Monocytes # (Auto) 0.6, Eosinophils # (Auto) 0.0, Basophils # (Auto) 0.0, Immature Granulocyte # (Auto) 0.1 04/30/20 05/01/20 20:11 02:14 Temp 36.5 37.0 Pulse 96 98 Resp 18 18 B/P (MAP) 108/69 (82) 134/73 (93) Pulse Ox 97 99 O2 Delivery Room Air Room Air Laboratory Tests Test 04/30/20 06:46 Range/Units White Blood Count 9.2 4.3-11.0 10^3/uL Red Blood Count 3.35 L 3.80-5.11 10^6/uL Hemoglobin 8.8 L 11.5-16.0 g/dL Hematocrit 30 L 35-52 % Mean Corpuscular Volume 88 80-99 fL Mean Corpuscular Hemoglobin 26 25-34 pg Mean Corpuscular Hemoglobin Concent 30 L 32-36 g/dL Red Cell Distribution Width 14.0 10.0-14.5 % Platelet Count 121 L 130-400 10^3/uL Mean Platelet Volume 12.4 H 9.0-12.2 fL Immature Granulocyte % (Auto) 1 % Neutrophils (%) (Auto) 70 42-75 % Lymphocytes (%) (Auto) 22 12-44 % Monocytes (%) (Auto) 7 0-12 % Eosinophils (%) (Auto) 1 0-10 % Basophils (%) (Auto) 0 0-10 % Neutrophils # (Auto) 6.5 1.8-7.8 10^3/uL Lymphocytes # (Auto) 2.0 1.0-4.0 10^3/uL Monocytes # (Auto) 0.6 0.0-1.0 10^3/uL Eosinophils # (Auto) 0.1 0.0-0.3 10^3/uL Basophils # (Auto) 0.0 0.0-0.1 10^3/uL Immature Granulocyte # (Auto) 0.1 0.0-0.1 10^3/uL Home Meds Active Reported Vitamin Tablet ( Vit No.124/Iron/FA) 1 Each Tablet 1 Each PO Assessment/Pt Instructions see DC orders Discharge Instructions Discharge Diet: No Restrictions Activity as Tolerated: Yes (no lifting over 25 lbs, no driving for 1 week, nothing in vagina for 6 weeks. ) Pneumonia Vaccine Order Indica: Yes Discharge Physical Examination General Appearance: Alert, Oriented X3 HEENT: Atraumatic Respiratory: Clear to Auscultation, Normal Air Movement Cardiovascular: Regular Rate, Normal S1, Normal S2 Abdominal: Normal Bowel Sounds, No Masses (nc c/d/i), Other Extremities: No Edema Psych/Mental Status: Mental Status NL Allergies: Coded Allergies: No Known Drug Allergies (Unverified , 09/06/17) Discharge Summary Date of Admission Apr 29, 2020 at 05:46 Date of Discharge 05/01/2020 Discharge Date: May 01, 2020 Admission Diagnosis Previous section Consults/Procedures Procedures Repeat Low transverse section Discharge Diagnosis previous macrosomia 40 week gestation acute blood loss anemia Clinical Quality Measures DVT/VTE Risk/Contraindication: Risk Factor Score Per Nursin RFS Level Per Nursing on Admit: 2=Moderate CHARISSA GOULD DO Apr 29, 2020 15:06
--- NOTE | 2020-04-29 15:08 | Discharge Inst-Women's Service ---
Discharge Inst-Women's Serv Depart Medication/Instructions New, Converted or Re-Newed RX: RX on Chart Final Diagnosis previous section repeat section Problems Reviewed?: Yes Consults/Follow Up Additional Follow Up: Yes (1 week and 6 weeks for incision check) Activity Activity: Activity as Tolerated Driving Instructions: No Driving for 1 Week NO SMOKING: NO SMOKING Nothing Inside Vagina: No Douching, No [place], No Tampons Diet Discharge Diet: No Restrictions Symptoms to Report to : Swelling Increased, Bleeding Excessive, Pain Increased, Fever Over 101 Degrees F, Vaginal Bleeding Increase, Cramps in Feet or Legs, Vaginal Discharge Foul For Any Problems or Questions: Contact Your Physician Skin/Wound Care Infection Signs and Symptoms: Increased Redness, Foul Odor of Wound, Increased Drainage, Skin Itchy or Has a Rash, Increased Swelling, Temperature Above 101 F Operative Area Clean and Dry: Keep Incision Clean/Dry Stitches/Diya/Dermabond: Dermabond Bathing Instructions: CHARISSA Sparks DO Apr 29, 2020 15:08
--- NOTE | 2020-04-29 20:00 | NUR ---
up ambulating in hallway. 2009-back to room tolerated well.
[2020-04-29] MEDS ORDERED: SIMETHICONE 80 MG (MYLICON) CHEW PO PRN ×2 (20:45→21:30)
[2020-04-29] MEDS ORDERED: SIMETHICONE 80 MG (MYLICON) CHEW ONE (21:02)
[2020-04-29] MEDS: DOCUSATE SODIUM 100 MG (COLACE) CAP PO SCH (21:05)
[2020-04-29] MEDS: CATHETER FLUSH 10 ML SYR IV SCH (22:34)
--- NOTE | 2020-04-29 22:40 | NUR ---
scheduled pain meds given. pt awake talking on phone with daughters. no needs at this time.
[2020-04-30 00:10] VITALS: BP 124/62
--- NOTE | 2020-04-30 02:31 | NUR ---
Pain meds given. pt has been up walking in hallway.
[2020-04-30 04:50] VITALS: BP 146/71
[2020-04-30] MEDS: KETOROLAC 30 MG/ML VIAL IV SCH (05:01)
--- NOTE | 2020-04-30 05:18 | NUR ---
Dressing removed from incision. Incision looks clean and dry. Pt set up for shower.
--- NOTE | 2020-04-30 06:30 | NUR ---
pt up to bathroom to void. Voids 200cc urine. ange care done. back to bed
--- NOTE | 2020-04-30 06:46 | Postpartum Progress Note ---
Post Op Post-operative Day #1 s/p RLTCS Subjective: Patient is without complaints. Ambulating, voiding after newell removed. Tolerating a regular diet without nausea or vomiting. Normal lochia. Pain is well controlled with oral pain medications. Passing flatus. breast feeding. Objective: Intake and Output 04/30/20 00:00 Intake Total 50 ml Output Total 650 ml Balance -600 ml Intake IV Total 50 ml Output Urine Total 150 ml Estimated Blood Loss 500 ml Daily Weight Change No 04/30/20 04/30/20 00:10 04:50 Temp 36.3 36.5 Pulse 81 85 Resp 20 20 B/P (MAP) 124/62 (82) 146/71 (96) Pulse Ox 97 98 O2 Delivery Room Air Room Air Laboratory Tests Test 04/30/20 06:46 Range/Units White Blood Count 9.2 4.3-11.0 10^3/uL Red Blood Count 3.35 L 3.80-5.11 10^6/uL Hemoglobin 8.8 L 11.5-16.0 g/dL Hematocrit 30 L 35-52 % Mean Corpuscular Volume 88 80-99 fL Mean Corpuscular Hemoglobin 26 25-34 pg Mean Corpuscular Hemoglobin Concent 30 L 32-36 g/dL Red Cell Distribution Width 14.0 10.0-14.5 % Platelet Count 121 L 130-400 10^3/uL Mean Platelet Volume 12.4 H 9.0-12.2 fL Immature Granulocyte % (Auto) 1 % Neutrophils (%) (Auto) 70 42-75 % Lymphocytes (%) (Auto) 22 12-44 % Monocytes (%) (Auto) 7 0-12 % Eosinophils (%) (Auto) 1 0-10 % Basophils (%) (Auto) 0 0-10 % Neutrophils # (Auto) 6.5 1.8-7.8 10^3/uL Lymphocytes # (Auto) 2.0 1.0-4.0 10^3/uL Monocytes # (Auto) 0.6 0.0-1.0 10^3/uL Eosinophils # (Auto) 0.1 0.0-0.3 10^3/uL Basophils # (Auto) 0.0 0.0-0.1 10^3/uL Immature Granulocyte # (Auto) 0.1 0.0-0.1 10^3/uL Physical Exam: General - Alert and oriented, no apparent distress Abdomen - Soft, appropriately tender to palpation, non-distended, fundus firm at umbilicus Incision - clean, dry and intact; no erythema or induration, no drainage Extremities - no edema, negative Leanne's bilaterally [] Assessment: 1. post-operative day # 1, status post PLTCS. Recovering well, hemodynamically stable 2. Acute blood loss anemia Plan: Routine post-operative care. Encourage breast feeding. Encourage ambulation. VTE prophylaxis: SCDs. Ferrous sulfate supplementation. Plan for discharge Vitals - Labs Vital Signs - I&O Vital Signs Date Time Temp Pulse Resp B/P (MAP) Pulse Ox O2 Delivery O2 Flow Rate FiO2 04/30/20 04:50 36.5 85 20 146/71 (96) 98 Room Air 04/30/20 00:10 36.3 81 20 124/62 (82) 97 Room Air 04/29/20 16:20 36.6 86 18 129/70 (89) 97 Room Air 04/29/20 12:34 36.6 89 18 116/59 (78) 97 Room Air 04/29/20 10:40 Room Air 04/29/20 10:40 36.5 18 120/80 (93) 98 Room Air 04/29/20 10:25 36.3 18 123/74 (90) 98 Room Air 04/29/20 10:25 Room Air 04/29/20 10:10 36.3 18 128/65 (86) 99 Room Air 04/29/20 10:10 Room Air 04/29/20 09:55 Room Air 04/29/20 09:53 37.7 18 125/72 (89) 99 Room Air 04/29/20 08:44 37.1 106 18 134/73 (93) I & O 04/30/20 07:00 Intake Total 50 ml Output Total 650 ml Balance -600 ml CHARISSA GOULD DO Apr 30, 2020 06:46
[2020-04-30 07:14] LABS: BASOPHILS % (AUTO) 0 % (0-10); EOSINOPHILS # (AUTO) 0.1 10^3/uL (0.0-0.3); EOSINOPHILS % (AUTO) 1 % (0-10); HEMATOCRIT 30 % (35-52); HEMOGLOBIN 8.8 g/dL (11.5-16.0); LYMPHOCYTES % (AUTO) 22 % (12-44); MEAN CORPUSCULAR HEMOGLOBIN 26 pg (25-34); MEAN CORPUSCULAR HGB CONC 30 g/dL (32-36); MEAN CORPUSCULAR VOLUME 88 fL (80-99); MEAN PLATELET VOLUME 12.4 fL (9.0-12.2); MONOCYTES # (AUTO) 0.6 10^3/uL (0.0-1.0); MONOCYTES % (AUTO) 7 % (0-12); NEUTROPHILS # (AUTO) 6.5 10^3/uL (1.8-7.8); NEUTROPHILS % (AUTO) 70 % (42-75); PLATELET COUNT 121 10^3/uL (130-400); WHITE BLOOD COUNT 9.2 10^3/uL (4.3-11.0)
[2020-04-30] MEDS: FERROUS SULF 325 MG (IRON) TAB PO SCH (07:45)
[2020-04-30] MEDS: ACETAMINOPHEN 500 MG TAB (TYLENOL) PO SCH ×2 (07:45→16:13)
--- NOTE | 2020-04-30 07:45 | NUR ---
Pt resting in bed. Scheduled meds given. IV out, tip intact. No further needs at this time.
--- NOTE | 2020-04-30 08:50 | NUR ---
Fresh linens given to pt. Pt to shower.
[2020-04-30 09:19] VITALS: BP 128/70
--- NOTE | 2020-04-30 09:25 | NUR ---
Vital signs taken, scheduled meds given and physical shift assessment completed. Pt walked 1 lap around unit. Stated that she was feeling a little dizzy after the walk. Nipple cream brought to pts room. No further needs at this time.
[2020-04-30] MEDS: DOCUSATE SODIUM 100 MG (COLACE) CAP PO SCH ×2 (09:28→20:12)
[2020-04-30] MEDS: CATHETER FLUSH 10 ML SYR IV SCH (09:44)
[2020-04-30 12:00] VITALS: BP 139/79
[2020-04-30] MEDS: IBUPROFEN 600 MG (MOTRIN) TAB PO SCH ×2 (12:09→20:12)
--- NOTE | 2020-04-30 14:26 | Anesthesia-Regional Post-Op ---
Regional Patient Condition Mental Status: Alert, Oriented x3 Circulation: Same as Pre-Op Headache: Absent Sensation: Full Recovery Motor Block: Absent Post Op Complications Complications None Follow Up Care/Instructions Patient Instructions None needed. Anesthesia/Patient Condition Patient is doing well, no complaints, stable vital signs, no apparent adverse anesthesia problems. FELIBERTO CLOUD DO Apr 30, 2020 14:26
[2020-04-30 18:30] VITALS: BP 122/76
[2020-04-30 20:11] VITALS: BP 108/69
[2020-05-01 02:14] VITALS: BP 134/73
[2020-05-01] MEDS: IBUPROFEN 600 MG (MOTRIN) TAB PO SCH ×3 (02:16→13:40)
[2020-05-01] MEDS: ACETAMINOPHEN 500 MG TAB (TYLENOL) PO SCH (05:12)
[2020-05-01 07:20] VITALS: BP 123/63
[2020-05-01] MEDS: DOCUSATE SODIUM 100 MG (COLACE) CAP PO SCH (07:27)
[2020-05-01] MEDS: FERROUS SULF 325 MG (IRON) TAB PO SCH (07:27)
--- NOTE | 2020-05-01 07:34 | Postpartum Progress Note ---
Post Op Post-operative Day #2 s/p RLTCS Subjective: Patient is without complaints. Ambulating, voiding after newell removed. Tolerating a regular diet without nausea or vomiting. Normal lochia. Pain is well controlled with oral pain medications. Passing flatus. breast feeding. Objective: 04/30/20 05/01/20 20:11 02:14 Temp 36.5 37.0 Pulse 96 98 Resp 18 18 B/P (MAP) 108/69 (82) 134/73 (93) Pulse Ox 97 99 O2 Delivery Room Air Room Air Physical Exam: General - Alert and oriented, no apparent distress Abdomen - Soft, appropriately tender to palpation, non-distended, fundus firm at umbilicus Incision - clean, dry and intact; no erythema or induration, no drainage Extremities - no edema, negative Leanne's bilaterally Assessment: 1. post-operative day # 2, status post RLTCS. Recovering well, hemodynamically stable 2. Acute blood loss anemia Plan: Routine post-operative care. Encourage breast feeding. Encourage ambulation. VTE prophylaxis: SCDs. Ferrous sulfate supplementation. Plan for discharge today Vitals - Labs Vital Signs - I&O Vital Signs Date Time Temp Pulse Resp B/P (MAP) Pulse Ox O2 Delivery O2 Flow Rate FiO2 05/01/20 02:14 37.0 98 18 134/73 (93) 99 Room Air 04/30/20 20:11 36.5 96 18 108/69 (82) 97 Room Air 04/30/20 18:30 36.5 90 18 122/76 (91) 98 Room Air 04/30/20 12:00 36.5 85 18 139/79 (99) 97 Room Air 04/30/20 09:19 36.3 93 18 128/70 (89) 97 Room Air CHARISSA GOULD DO May 01, 2020 07:34
--- NOTE | 2020-05-01 12:58 | NUR ---
home instructions given - verbal and written. Pt verbalizes understanding.
--- NOTE | 2020-05-01 15:50 | NUR ---
Discharge to exit via wheelchair. Accompanied by father of baby and this RN. Mom carrying on lap in car seat.
== END 2020-05-01 15:50 | disposition home or self-care (01) | DRG 787 ==
LOC: LDRP 04-29 05:46
PROVIDERS: ADMIT Obstetrics & Gynecology; ATTEND Obstetrics & Gynecology
PROC: 10D00Z1 Extraction of Products of Conception, Low, Open Approach (ICD-10-PCS; principal; 2020-04-29 08:48)
DX: O48.0 Post-term pregnancy (principal); D62 Acute posthemorrhagic anemia; O34.211 Maternal care for low transverse scar from previous cesarean delivery; O64.0XX0 Obstructed labor due to incomplete rotation of fetal head, not applicable or unspecified; O36.63X0 Maternal care for excessive fetal growth, third trimester, not applicable or unspecified; Z3A.40 40 weeks gestation of pregnancy; Z37.0 Single live birth; O99.343 Other mental disorders complicating pregnancy, third trimester; F41.9 Anxiety disorder, unspecified; O90.81 Anemia of the puerperium
CPT/HCPCS: 36415; 85025; 86850; 86900; 86901

== ENCOUNTER → 2020-04-28 | Outpatient (CLI) | payer BC ==
[~2020-04-28] MED LIST changes: +ACET-93 PO; +FERR325T18 PO; +OXC5T PO
== END ==
LOC: LABNPT 08:49
PROVIDERS: ATTEND Obstetrics & Gynecology
DX: Z01.812 Encounter for preprocedural laboratory examination (principal); Z20.828 Contact with and (suspected) exposure to other viral communicable diseases
CPT/HCPCS: 87635